=== PATIENT | male | born 1940 | race Caucasian/White ===

== ENCOUNTER 2018-05-31 13:27 | Inpatient (IN) ==
[2018-05-31] MEDS ORDERED: Diphtheria/Tetanus/Pertussis Vaccine Inj 0.5 ML Syringe IM ONE (13:59)
--- NOTE | 2018-05-31 14:26 | XR ---
EXAM DATE: 05/31/2018 2:21 PM EDT AGE/SEX: 77 years / Male INDICATIONS: Fell out of a tree today. CLINICAL DATA: This is the patient's initial encounter. Patient reports that signs and symptoms have been present for 1 day and indicates a pain score of 0/10. MEDICAL/SURGICAL HISTORY: Hypertension. CABG. COMPARISON: No prior exams available for comparison. FINDINGS: A single AP view of the chest demonstrates the lungs to be symmetrically aerated without evidence of mass, infiltrate or effusion. Status post CABG. The cardiomediastinal contours are unremarkable. Oss eous structures are intact. CONCLUSION: Status post CABG. No acute cardiopulmonary disease. Electronically signed by: Joe Howell MD 05/31/2018 2:24 PM EDT
[2018-05-31 14:40] LABS: Baso % (Auto) 0.4 % (0.0-2.0); Eos # (Auto) 0.3 th/mm3 (0.0-0.4); Eos % (Auto) 5.1 % (0.0-4.0); Hematocrit 39.9 % (39.0-51.0); Hemoglobin 13.3 gm/dL (13.0-17.0); Lymph # (Auto) 1.1 th/mm3 (1.0-4.8); Lymph % (Auto) 20.1 % (9.0-44.0); Mean Corpuscular HGB Conc 33.4 % (32.0-36.0); Mean Corpuscular Hemoglobin 29.2 pg (27.0-34.0); Mean Corpuscular Volume 87.4 fL (80.0-100.0); Mean Platelet Volume 8.2 fL (7.0-11.0); Mono # (Auto) 0.4 th/mm3 (0.0-0.9); Mono % (Auto) 7.8 % (0.0-8.0); Neut # (Auto) 3.5 th/mm3 (1.8-7.7); Neut % (Auto) 66.6 % (16.0-70.0); Platelet Count 164 th/mm3 (150-450); Red Blood Count 4.57 mil/mm3 (4.50-5.90); Red Cell Distribution Width 13.7 % (11.6-17.2); White Blood Count 5.3 th/mm3 (4.0-11.0)
[2018-05-31 15:01] LABS: Activated Partial Thrombo Time 29.8 sec (24.3-30.1); INR 1.7 Ratio; Prothrombin Time 17.4 sec (9.8-11.6)
[2018-05-31 15:39] LABS: Anion Gap 9 meq/L (5-15); Blood Urea Nitrogen 20 mg/dL (7-18); Calcium 8.5 mg/dL (8.5-10.1); Carbon Dioxide 24.5 meq/L (21.0-32.0); Chloride 111 meq/L (98-107); Glomerular Filtration Rate 83 mL/min (>89); Glucose,Random 120 mg/dL (74-106); Sodium 144 meq/L (136-145)
[2018-05-31] MEDS ORDERED: Morphine Sulfate Inj 8 MG/ML Vial IV.PUSH ONE (15:50)
[2018-05-31] MEDS ORDERED: Phytonadione Inj 10 MG/ML Vial SQ ONE (16:07)
[2018-05-31] MEDS: niCARdipine Inj 25 MG in Sodium Chlor 0.9% Inj 240 ML IV.CONT PRN (16:10)
--- NOTE | 2018-05-31 16:14 | ED ---
Procedures Laceration Laceration 1: Site: upper extremity Side (If applicable): left Size (cm): 6 Description: linear Depth: simple, single layer Anesthetic used: lidocaine 2% Anesthesia technique:: local infiltration Pre-repair:: wound explored, irrigated extensively and deep structures intact Skin layer closed with: ethilon Size (cm): 4-0 Number of sutures:: 11 Technique:: simple, interrupted
--- NOTE | 2018-05-31 16:25 | ED ---
HPI General Chief complaint: Fall Stated complaint: fall/evac Time Seen by Provider: 05/31/18 13:47 Source: patient and family Mode of arrival: EMS History of Present Illness HPI narrative: Patient is a 77-year-old male on Coumadin presents emergency department after a fall from a tree. Patient does not have any recollection of how he might have fallen. He is fairly certain he lost consciousness. He states he was trimming the trees and he thinks he was about 6 feet up on a ladder and the next thing he knew he was on the ground with EMS standing over called 911 after seeing him on the ground. Ultimately it was passed from me from the patient's that neighbors caught on camera that he was actually hit by a falling branch which forced him off a ladder and onto the ground. Patient does not have any recollection of this. He does have some abrasions on his face as well as a laceration to his left arm and some right wrist pain. Denies any chest pain abdominal pain nausea or vomiting. Denies any headache peer Onset (ago): minute(s) Location: upper extremity Severity: mild Associated symptoms: denies other symptoms Related Data Home Medications Medication Instructions Recorded Confirmed carvedilol [Coreg] 3.125 mg PO BID 05/31/18 05/31/18 gabapentin 300 mg PO DAILY 05/31/18 05/31/18 warfarin [Coumadin] 3 mg PO DAILY 05/31/18 05/31/18 Allergies Allergy/AdvReac Type Severity Reaction Status Date / Time No Known Allergies Allergy Uncoded 01/31/16 13:08 Review of Systems Except as stated in HPI: all other systems reviewed are negative [facility] Medical History Medical History Atrial fibrillation (Acute) CHF (congestive heart failure) (Acute) High triglycerides (Acute) Surgical History Surgical History Hx of CABG (Acute) Hx of cardiac cath (Acute) Hx of cardiac cath (Acute) Social History Social History Substance History: No History of Abuse Second Hand Smoke Exposure: No Smoking Status: Never smoker How Often Do You Have a Drink Containing Alcohol: Monthly or less Recent Travel in [facility] within the Last 8 Weeks: No Recent Out of Country Travel within the Last 8 Weeks: No Immunization History Tetanus Immunization: Unsure Hx Influenza Vaccine This Season: Yes Exam Narrative Exam Narrative: GENERAL: Well-developed well-nourished, no obvious distress peer SKIN: Focused skin assessment warm/dry. There is contusion to the right lip, abrasions to the forehead, also a laceration probably about 6cm in length, there is fatty tissue exposed. There is a contusion to the right forearm, no contusions on chest abdomen or pelvis no contusions posteriorly. HEAD: No carlson signs no raccoons eyes normocephalic. EYES: Pupils equal and round. No scleral icterus. No injection or drainage. ENT: No nasal bleeding or discharge. Mucous membranes pink and moist. NECK: Trachea midline. No JVD. CARDIOVASCULAR: Regular rate and rhythm. No murmur appreciated. RESPIRATORY: No accessory muscle use. Clear to auscultation. Breath sounds equal bilaterally. GASTROINTESTINAL: Abdomen soft, non-tender, nondistended. Hepatic and splenic margins not palpable. MUSCULOSKELETAL: No obvious deformities. No clubbing. No cyanosis. No edema. NEUROLOGICAL: Awake and alert and oriented, GCS 15, appears to have retrograde amnesia to the event as well as some anterograde amnesia. He does not recall when I told him that he has bleeding in the brain. 5 out of 5 strength in all 4 extremities. PSYCHIATRIC: Appropriate mood and affect; insight and judgment normal. Course Hospital Course: Patient was room to the emergency department, hemodynamically stable and neurologically intact he was taken to CAT scan that did show multiple intracranial hemorrhage. This was discussed with Dr. Crews as below. Initial Documented Vital Signs Temperature 98.7 F 05/31/18 13:42 Pulse Rate 67 05/31/18 13:42 Respiratory Rate 18 05/31/18 13:42 Blood Pressure 176/90 H 05/31/18 13:42 Pulse Oximetry 95 05/31/18 13:42 Last Documented Vital Signs Temperature 98.7 F 05/31/18 13:42 Pulse Rate 78 05/31/18 16:44 Respiratory Rate 18 05/31/18 16:44 Blood Pressure 148/71 H 05/31/18 16:44 Pulse Oximetry 95 05/31/18 16:44 Critical Care Time Critical Care Time: Yes Total Critical Care Time: 35 Attestation: Aggregate critical care time was 35 minutes. Time to perform other separately billable procedures was not included in the critical care time. My time did not include minutes spent treating any other patients simultaneously or on activities that did not directly contribute to the patient's treatment. The services I provided to this patient were to treat and/or prevent clinically significant deterioration that could result in: , disability, organ failure I provided critical care services requiring my management, as noted below: Chart data review, documentation time, medication orders and management, vital sign assessments/reviewing monitor data, ordering and reviewing lab tests, ordering and interpreting/reviewing x-rays and diagnostic studies, care of the patient and discussion of the patient with the admitting physicians. Medical Decision Making MDM Narrative Medical decision making narrative: Patient was discussed with Dr. Crews neurosurgery service recommended vitamin K 2 units of FFP admission to the hospital and blood pressure control. I have already ordered a Cardene drip which the patient is responding well to. Doses of morphine and Percocet were given. Patient appears much more comfortable. Laceration was repaired, CT of the neck showed chronic degenerative changes but nothing acute, c-collar was applied and then removed, patient ultimately discussed with Dr. Johnston for admission to the surgical ICU who is agreeable. Differential Diagnosis Differential Diagnosis: Intracranial hemorrhage, fall, concussion, laceration, wrist injury Lab Data Result diagrams: 05/31/18 14:12 05/31/18 14:12 Lab Results 05/31/18 05/31/18 05/31/18 Range/Units 14:12 14:12 14:12 WBC 5.3 (4.0-11.0) th/mm3 RBC 4.57 (4.50-5.90) mil/mm3 Hgb 13.3 (13.0-17.0) gm/dL Hct 39.9 (39.0-51.0) % MCV 87.4 (80.0-100.0) fL MCH 29.2 (27.0-34.0) pg MCHC 33.4 (32.0-36.0) % RDW 13.7 (11.6-17.2) % Plt Count 164 (150-450) th/mm3 MPV 8.2 (7.0-11.0) fL Neut % (Auto) 66.6 (16.0-70.0) % Lymph % (Auto) 20.1 (9.0-44.0) % [place] % (Auto) 7.8 (0.0-8.0) % Eos % (Auto) 5.1 H (0.0-4.0) % Baso % (Auto) 0.4 (0.0-2.0) % Neut # (Auto) 3.5 (1.8-7.7) th/mm3 Lymph # (Auto) 1.1 (1.0-4.8) th/mm3 [place] # (Auto) 0.4 (0.0-0.9) th/mm3 Eos # (Auto) 0.3 (0.0-0.4) th/mm3 Baso # (Auto) 0.0 (0.0-0.2) th/mm3 WBC Differential . Differential Comment Auto diff final PT 17.4 H (9.8-11.6) sec INR 1.7 Ratio APTT 29.8 (24.3-30.1) sec Sodium 144 (136-145) meq/L Potassium 4.0 (3.5-5.1) meq/L Chloride 111 H (98-107) meq/L Carbon Dioxide 24.5 (21.0-32.0) meq/L Anion Gap 9 (5-15) meq/L BUN 20 H (7-18) mg/dL Creatinine 0.89 (0.60-1.30) mg/dL Estimated GFR 83 L (>89) mL/min Random Glucose 120 H (74-106) mg/dL Calcium 8.5 (8.5-10.1) mg/dL Troponin I Less than 0.02 L (0.02-0.05) ng/mL Imaging Data Radiologist's impression: ITS Impressions Cervical Spine CT 05/31/18 13:59 CONCLUSION: 1. No acute bony fracture. 2. Diffuse primary bony degenerative changes, disc degeneration and disc space narrowing throughout the cervical spine. There is diffuse osteopenia of the bony structures. 3. Mild grade 1 anterior spondylolisthesis of C3 over C4. 4. Broad-based bulging at C3-4 and C5-6. Head CT 05/31/18 13:59 CONCLUSION: 1. Small bilateral frontal intraparenchymal hemorrhages. 2. There is subarachnoid hemorrhage in the right sylvian fissure. 3. No midline shift or mass effect. Chest X-Ray 05/31/18 14:01 CONCLUSION: Status post CABG. No acute cardiopulmonary disease. Wrist X-Ray 05/31/18 16:16 CONCLUSION: Hairline nondisplaced fracture of the distal radius. Discharge Plan Discharge Disposition Patient Disposition: 30 Still Patient Discharge Condition Condition: Stable Discharge Details Discharge Problem: Subarachnoid hemorrhage, Subdural hemorrhage, Intraparenchymal hemorrhage of brain, Laceration of arm, Fall, Fracture of radius Physicians Team ED Provider: Gian Mccullough Primary Care Provider: Haroldo Castro Rxs /Orders / Referrals /Forms Prescriptions: No Action carvedilol [Coreg] 3.125 mg Tablet 3.125 mg PO BID RF: 0 warfarin [Coumadin] 3 mg Tablet 3 mg PO DAILY RF: 0 gabapentin 300 mg Capsule 300 mg PO DAILY RF: 0 Discharge Interventions Interventions: Vital Signs Last Done: 05/31/18 16:44 Status ED Status: Admitted Patient
--- NOTE | 2018-05-31 16:32 | XR ---
EXAM DATE: 05/31/2018 4:29 PM EDT AGE/SEX: 77 years / Male INDICATIONS: Right medial wrist pain post fall. CLINICAL DATA: This is the patient's initial encounter. Patient reports that signs and symptoms have been present for 1 day and indicates a pain score of 4/10. MEDICAL/SURGICAL HISTORY: . Hypertension. . CABG. COMPARISON: No prior exams available for comparison. FINDINGS: There is a faint hairline fracture through the distal radius. Otherwise, the bony structures are inta ct. No joint dislocation is seen. There are primary degenerative changes involving the carpal bones. There are calcifications in the soft tissues consistent with vascular calcifications. There is some m ild soft tissue swelling. CONCLUSION: Hairline nondisplaced fracture of the distal radius. Electronically signed by: Roberto Roy MD 05/31/2018 4:31 PM EDT
[2018-05-31] MEDS ORDERED: Sodium Chlor 0.9% Inj 250 ML IV.SIG SCH (17:00)
[2018-05-31] MEDS ORDERED: Bisacodyl 10 MG Supp RECTAL PRN (17:04)
--- NOTE | 2018-05-31 17:27 | P.HPCC ---
History of Present Illness Primary Care Physician: Haroldo Castro DO Chief Complaint: Fall History of Present Illness: Patient is a 75-year-old male with past medical history significant for chronic atrial fibrillation, chronic Coumadin therapy, history of hypertension, history of CABG and carotid endarterectomy who presented to the emergency department after he sustained a fall from a tree. Apparently he was on the tree trimming some branches when he fell down. Patient is on chronic Coumadin for atrial fibrillation. Patient does not have any recollection of how he might have fallen. He did lose consciousness. ER workup showed small bifrontal hemorrhage and a small SAH. Also he sustained hairline fracture of right distal radius. Rest of trauma work up was negative. Neurosurgery Dr. Crews was consulted. Critical care medicine was requested to admit the patient. I evaluated the patient in the ED. He is slightly anxious but nonfocal. He has some retrograde and antegrade amnesia. Blood pressure was poorly controlled systolic blood pressure was in 240s, patient was started on Cardene infusion for this reason. INR is 1.7 and patient will receive 2 units of FFP, vitamin K 5 mg already given by ED - Diagnosis (1) Subarachnoid hemorrhage (2) Intraparenchymal hemorrhage of brain (3) Laceration of arm - Inpatient Certification If this patient has been admitted as an Inpatient: I certify that the inpatient services were ordered in accordance with Medicare regulations governing the order. This includes certification that hospital inpatient services are reasonable and necessary and in the case of services not specified as inpatient-only under 42 CFR 419.22(n), that they are appropriately provided as inpatient services in accordance to with the 2-midnight benchmark under 43 CFR 412.3(e) Estimated Total Length of Stay (Days): 5 Plans for Post Hospital Care: Not yet determined Review of Systems other (Unable to obtain reliably due to amnesia from concussion) PMFSH - History History Provided By: Patient - Medical History Medical History: Medical History (Last Reviewed 05/31/18 @ 17:14 by Ritika Johnston MD) Atrial fibrillation CHF (congestive heart failure) High triglycerides - Surgical History Surgical History: Surgical History (Last Reviewed 05/31/18 @ 17:14 by Ritika Johnston MD) Hx of CABG Hx of cardiac cath Hx of cardiac cath - Tobacco History Second Hand Smoke Exposure: No Smoking Status: Former smoker - Alcohol History How Often Do You Have a Drink Containing Alcohol: Monthly or less - Substance Use History Substance History: No History of Abuse - Travel History Recent Travel in the [place] Within the Last 8 Weeks: No Recent Travel Out of the Country Within the Last 8 Weeks: No - Immunization History Tetanus Immunization: Unsure Hx Influenza Vaccine This Season: Yes Medications and Allergies Active Medications: Active Medications Al Hydroxide/Mg Hydroxide (Milk Of Magnesia Liq) 30 ml PO Q12H PRN PRN Reason: Mild Constipation Bisacodyl (Dulcolax Supp) 10 mg RECTAL DAILY PRN PRN Reason: SEVERE CONSITIPATION Chlorhexidine Gluconate (Chlorhexidine 2% Cloth) 3 pack TOPICAL DAILY@0400 KURT Stop: 06/06/18 03:59 Chlorhexidine Gluconate (Chlorhexidine 2% Cloth) 3 pack TOPICAL DAILY@0400 PRN PRN Reason: Extra cloth needed Stop: 06/06/18 03:59 Famotidine (Pepcid) 20 mg PO BID KURT Famotidine (Pepcid Pf Inj) 20 mg IV.PUSH Q12HR [facility] Nicardipine HCl 25 mg/ Sodium (Chloride) 250 mls @ 50 mls/hr IV.CONT TITRATE PRN; Protocol PRN Reason: Per Protocol Last Admin: 05/31/18 16:10 Dose: 5 mg/hr, 50 mls/hr Sodium Chloride (Ns Inj) 250 mls @ 15 mls/hr IV.SIG ONCE KURT Stop: 06/01/18 09:39 Lactulose (Lactulose Liq) 30 ml PO DAILY PRN PRN Reason: SEVERE CONSITIPATION Senna/Docusate Sodium (Radhika-Colace) 1 tab PO BID [facility] Sennosides (Senokot) 17.2 mg PO Q12H PRN PRN Reason: Moderate Constipation Sodium Chloride (Ns Flush) 2 ml IV.FLUSH BID [facility] Sodium Chloride (Ns Flush) 2 ml IV.FLUSH PRN PRN PRN Reason: FLUSH AFTER USING IV ACCESS Allergies Allergy/AdvReac Type Severity Reaction Status Date / Time No Known Allergies Allergy Uncoded 01/31/16 13:08 Home Medications Medication Instructions Recorded Confirmed Type carvedilol [Coreg] 3.125 mg PO BID 05/31/18 05/31/18 History gabapentin 300 mg PO DAILY 05/31/18 05/31/18 History warfarin [Coumadin] 3 mg PO DAILY 05/31/18 05/31/18 History Results - Labs CBC & Chem 7: 05/31/18 14:12 05/31/18 14:12 Labs: Short CBC 05/31/18 Range/Units 14:12 WBC 5.3 (4.0-11.0) th/mm3 Hgb 13.3 (13.0-17.0) gm/dL Hct 39.9 (39.0-51.0) % Plt Count 164 (150-450) th/mm3 BMP 05/31/18 14:12 Sodium 144 Potassium 4.0 Chloride 111 H Carbon Dioxide 24.5 BUN 20 H Creatinine 0.89 Calcium 8.5 Cardiac Enzymes 05/31/18 Range/Units 14:12 Troponin I Less than 0.02 L (0.02-0.05) ng/mL - Imaging Impressions Cervical Spine CT 05/31/18 13:59 CONCLUSION: 1. No acute bony fracture. 2. Diffuse primary bony degenerative changes, disc degeneration and disc space narrowing throughout the cervical spine. There is diffuse osteopenia of the bony structures. 3. Mild grade 1 anterior spondylolisthesis of C3 over C4. 4. Broad-based bulging at C3-4 and C5-6. Head CT 05/31/18 13:59 CONCLUSION: 1. Small bilateral frontal intraparenchymal hemorrhages. 2. There is subarachnoid hemorrhage in the right sylvian fissure. 3. No midline shift or mass effect. Chest X-Ray 05/31/18 14:01 CONCLUSION: Status post CABG. No acute cardiopulmonary disease. Wrist X-Ray 05/31/18 16:16 CONCLUSION: Hairline nondisplaced fracture of the distal radius. Exam Vital signs: Vital Signs 05/31/18 13:42 05/31/18 14:41 05/31/18 15:38 Temperature 98.7 F Pulse Rate 67 68 73 Respiratory Rate 18 18 Blood Pressure 176/90 H 228/102 H Pulse Oximetry 95 97 98 05/31/18 16:33 05/31/18 16:44 Temperature Pulse Rate 78 78 Respiratory Rate 18 18 Blood Pressure 161/85 H 148/71 H Pulse Oximetry 96 95 Intake & Output 05/30/18 05/31/18 05/31/18 18:59 06:59 18:59 Weight 68.039 kg Narrative: GENERAL: Well-developed well-nourished, mildly anxious SKIN: Warm/dry. Multiple small abrasions and lacerations to the right side of the face predominantly HEAD: No carlson signs, normocephalic. EYES: Pupils equal and round. No scleral icterus. No injection or drainage. ENT: No nasal bleeding or discharge. NECK: Trachea midline. No JVD. Well-healed left carotid endarterectomy scar CARDIOVASCULAR: Regular rate and rhythm. No murmur appreciated. Well-healed CABG scar RESPIRATORY: No accessory muscle use. Clear to auscultation. Breath sounds equal bilaterally. GASTROINTESTINAL: Abdomen soft, non-tender, nondistended. Hepatic and splenic margins not palpable. MUSCULOSKELETAL: No obvious deformities. Band-Aids applied to the left forearm NEUROLOGICAL: Awake and alert and oriented, GCS 15, did not recall any events and immediate post fall. 5 out of 5 strength in all 4 extremities. Septic Shock Reassessment Septic shock perfusion: reassessment completed Caprini VTE Risk Assessment Caprini VTE Risk Assessment: No/Low Risk (score <= 1) VTE Pharmacological Exception Reason: Hemorrhage Caprini Risk Assessment Model: Point Value = 1 Point Value = 2 Point Value = 3 Point Value = 5 Age 41-60 Minor surgery BMI > 25 kg/m2 Swollen legs Varicose veins or History of unexplained or recurrent spontaneous Oral contraceptives or hormone replacement Sepsis (< 1 month) Serious lung disease, including pneumonia (< 1 month) Abnormal pulmonary function Acute myocardial infarction Congestive heart failure (< 1 month) History of inflammatory bowel disease Medical patient at bed rest Age 61-74 Arthroscopic surgery Major open surgery (> 45 min) Laparoscopic surgery (> 45 min) Malignancy Confined to bed (> 72 hours) Immobilizing plaster cast Central venous access Age >= 75 History of VTE Family history of VTE Factor V Leiden Prothrombin [id number] Lupus anticoagulant Anticardiolipin antibodies Elevated serum homocysteine Heparin-induced thrombocytopenia Other congenital or acquired thrombophilia Stroke (< 1 month) Elective arthroplasty Hip, pelvis, or leg fracture Acute spinal cord injury (< 1 month) Prophylaxis Regimen: Total Risk Factor Score Risk Level Prophylaxis Regimen 0-1 Low Early ambulation 2 Moderate Order ONE of the following: *Sequential Compression Device (SCD) *Heparin 5000 units SQ BID 3-4 Higher Order ONE of the following medications: *Heparin 5000 units SQ TID *Enoxaparin/Lovenox 40 mg SQ daily (WT < 150 kg, CrCl > 30 mL/min) *Enoxaparin/Lovenox 30 mg SQ daily (WT < 150 kg, CrCl > 10-29 mL/min) *Enoxaparin/Lovenox 30 mg SQ BID (WT < 150 kg, CrCl > 30 mL/min) AND/OR *Sequential Compression Device (SCD) 5 or more Highest Order ONE of the following medications: *Heparin 5000 units SQ TID (Preferred with Epidurals) *Enoxaparin/Lovenox 40 mg SQ daily (WT < 150 kg, CrCl > 30 mL/min) *Enoxaparin/Lovenox 30 mg SQ daily (WT < 150 kg, CrCl > 10-29 mL/min) *Enoxaparin/Lovenox 30 mg SQ BID (WT < 150 kg, CrCl > 30 mL/min) AND *Sequential Compression Device (SCD) Assessment and Plan - Problem List (1) Subarachnoid hemorrhage Code(s): I60.9 - Nontraumatic subarachnoid hemorrhage, unspecified Status: Acute (2) Intraparenchymal hemorrhage of brain Code(s): I61.9 - Nontraumatic intracerebral hemorrhage, unspecified Status: Acute (3) Laceration of arm Code(s): S41.119A - Laceration without foreign body of unspecified upper arm, initial encounter Status: Acute - Assessment and Plan Plan: NEURO: Status post fall Small bilateral frontal intraparenchymal hemorrhages Subarachnoid hemorrhage in the right sylvian fissure -Neurosurgery consult with Dr. Crews -Follow-up CT scan in a.m., no indication for seizure prophylaxis at this time -Avoid hypoxia, hyponatremia, hypercarbia -Normal saline infusion RESP: -Nasal cannula oxygen -DuoNeb every 6 hours as needed CV: Hypertensive emergency Atrial fibrillation by history Coronary artery disease status post CABG Status post left carotid endarterectomy -Normal saline IV fluids at 75 ml per hour to maintain sodium> 145 -Cardene infusion to keep SBP less than 150 -Continue carvedilol GI: -Heart healthy diet -Famotidine, bowel regimen : -Monitor renal function closely. No indication for Suarez catheter. ID: -Monitor for infection HEME: Coagulopathy from chronic Coumadin use -Give 2 units of FFP -Monitor CBC, CMP, INR -Vit K 5 mg sq given in ED ENDO: -Electrolyte replacement per ICU protocol MSK Hairline nondisplaced fracture of the distal radius. -Ortho consult, Splint PROPH: -Bilateral lower extremity SCDs. Chemical DVT prophylaxis contraindicated due to intracranial hemorrhage, IV famotidine for GI prophylaxis LINES: -Utilize peripheral IVs, central line if needed CC time 35 min Code Status: Full Discussed Condition With: Dr. Mccullough, patient and his
--- NOTE | 2018-05-31 18:08 | P.CON ---
History of Present Illness Service: Neurosurgery Consult date: 05/31/18 Requesting Physician: Ritika Johnston Reason for Consult: Traumatic brain injury Primary Care Provider: Haroldo Castro DO Family Provider: Haroldo Castro DO Chief Complaint: Fall History of Present Illness: 77-year-old gentleman who was brought to [facility] emergency room after a fall from a tree. Apparently he was up on a tree on a ladder cutting a tree branch which fell on his head and he lost consciousness and fell from the ladder onto the ground. He is amnestic of the event. His main complaint is right forearm wrist pain. He also relates that the tree branch hit him yesterday on the face and he had some abrasions but did not lose consciousness. He is hypertensive in the emergency room and placed on Cardene drip. He is also on chronic Coumadin therapy for his atrial fibrillation with an elevated INR. CT scan of the head obtained reveals some small contusions and traumatic subarachnoid hemorrhage with no mass-effect or midline shift noted. CT of cervical spine reveals chronic degenerative changes. He relates chronic neck pain which she has had since he was 17-18 years old and is not new. He denies any headaches, nausea vomiting, double vision or blurred vision , or any numbness in the upper lower extremities. Review of Systems All other systems reviewed negative except as stated in HPI Constitutional: Reports body ache(s) Ears, Nose, Mouth, and Throat: Reports lip swelling, Reports mouth pain, Reports neck pain, Reports tongue swelling Musculoskeletal: Reports joint pain, Reports muscle cramps, Reports neck pain, Reports stiffness Skin/Breast: Reports bleeding lesions, Reports rash, Reports wounds Hematologic/Lymphatic: Reports easy bleeding, Reports easy bruising PMFSH - History History Provided By: Patient, Medical Record - Medical History Medical History: Medical History (Last Reviewed 05/31/18 @ 17:14 by Ritika Johnston MD) Atrial fibrillation CHF (congestive heart failure) High triglycerides - Surgical History Surgical History: Surgical History (Last Reviewed 05/31/18 @ 17:14 by Ritika Johnston MD) Hx of CABG Hx of cardiac cath Hx of cardiac cath - Tobacco History Second Hand Smoke Exposure: No Smoking Status: Former smoker - Alcohol History How Often Do You Have a Drink Containing Alcohol: Monthly or less - Substance Use History Substance History: No History of Abuse - Travel History Recent Travel in the [place] Within the Last 8 Weeks: No Recent Travel Out of the Country Within the Last 8 Weeks: No - Immunization History Tetanus Immunization: Unsure Hx Influenza Vaccine This Season: Yes Medications and Allergies Active Medications: Active Medications Al Hydroxide/Mg Hydroxide (Milk Of Magnesia Liq) 30 ml PO Q12H PRN PRN Reason: Mild Constipation Albuterol (Duoneb Neb (Prn)) 1 ampul NEB Q2HR NEB PRN PRN Reason: SHORTNESS OF BREATH Bisacodyl (Dulcolax Supp) 10 mg RECTAL DAILY PRN PRN Reason: SEVERE CONSITIPATION Carvedilol (Coreg) 3.125 mg PO BID [facility] Chlorhexidine Gluconate (Chlorhexidine 2% Cloth) 3 pack TOPICAL DAILY@0400 KURT Stop: 06/06/18 03:59 Chlorhexidine Gluconate (Chlorhexidine 2% Cloth) 3 pack TOPICAL DAILY@0400 PRN PRN Reason: Extra cloth needed Stop: 06/06/18 03:59 Famotidine (Pepcid) 20 mg PO BID [facility] Gabapentin (Neurontin) 300 mg PO DAILY [facility] Nicardipine HCl 25 mg/ Sodium (Chloride) 250 mls @ 50 mls/hr IV.CONT TITRATE PRN; Protocol PRN Reason: Per Protocol Last Admin: 05/31/18 16:10 Dose: 5 mg/hr, 50 mls/hr Sodium Chloride (Ns Inj) 250 mls @ 15 mls/hr IV.SIG ONCE KURT Stop: 06/01/18 09:39 Lactulose (Lactulose Liq) 30 ml PO DAILY PRN PRN Reason: SEVERE CONSITIPATION Senna/Docusate Sodium (Radhika-Colace) 1 tab PO BID [facility] Sennosides (Senokot) 17.2 mg PO Q12H PRN PRN Reason: Moderate Constipation Sodium Chloride (Ns Flush) 2 ml IV.FLUSH BID [facility] Sodium Chloride (Ns Flush) 2 ml IV.FLUSH PRN PRN PRN Reason: FLUSH AFTER USING IV ACCESS Allergies Allergy/AdvReac Type Severity Reaction Status Date / Time No Known Allergies Allergy Uncoded 01/31/16 13:08 Home Medications Medication Instructions Recorded Confirmed Type carvedilol [Coreg] 3.125 mg PO BID 05/31/18 05/31/18 History gabapentin 300 mg PO DAILY 05/31/18 05/31/18 History warfarin [Coumadin] 3 mg PO DAILY 05/31/18 05/31/18 History Physical Exam Vital signs: Vital Signs 05/31/18 13:42 05/31/18 14:41 05/31/18 15:38 Temperature 98.7 F Pulse Rate 67 68 73 Respiratory Rate 18 18 Blood Pressure 176/90 H 228/102 H Pulse Oximetry 95 97 98 05/31/18 16:33 05/31/18 16:44 05/31/18 17:12 Temperature Pulse Rate 78 78 79 Respiratory Rate 18 18 18 Blood Pressure 161/85 H 148/71 H 153/77 H Pulse Oximetry 96 95 95 Intake & Output 05/30/18 05/31/18 05/31/18 18:59 06:59 18:59 Weight 68.039 kg - Constitutional no acute distress, cooperative - Routine HEENT Exam Head: Present: abrasion, hematoma, facial swelling Eye: Present: EOMI, PERRL ENT: Present: mucous membranes moist, oropharynx clear, nares patent, external ear normal - Routine Neck Exam Present: supple, full ROM, trachea midline - Routine Respiratory Exam Present: CTA bilaterally - Routine Cardiovascular Exam Present: irregularly irregular Comments: Well-healed midline sternotomy scar - Routine Abdominal Exam Present: soft, normoactive bowel sounds - Routine Extremities Exam Present: edema, tenderness, joint swelling - Routine Skin Exam Present: wounds, rash - Routine Neurological Exam Present: alert, oriented X3, CN II-XII intact, moving all extremities, facial asymmetry, normal speech Slight facial asymmetry from swelling in the right side of the face and lip with ecchymosis - Detailed Neurological Exam: Coma Scale Eye Opening: Spontaneous Verbal Response: Oriented Motor Response: Obey commands [place] Coma Scale Total: 15 - Routine Psychiatric Exam Present: normal affect, normal thought process, cooperative Assessment and Plan - Assessment (1) Traumatic brain injury with brief (less than 1 hour) loss of consciousness Code(s): S06.9X9A - Unspecified intracranial injury with loss of consciousness of unspecified duration, initial encounter Status: Acute (2) Brain contusion with less than 1 hour loss of consciousness Code(s): S06.2X9A - Diffuse traumatic brain injury with loss of consciousness of unspecified duration, initial encounter Status: Acute (3) Traumatic subarachnoid hematoma with loss of consciousness Code(s): S06.6X9A - Traumatic subarachnoid hemorrhage with loss of consciousness of unspecified duration, initial encounter Status: Acute (4) Hypertension Code(s): I10 - Essential (primary) hypertension Status: Acute (5) Warfarin-induced coagulopathy Code(s): D68.32 - Hemorrhagic disorder due to extrinsic circulating anticoagulants; T45.515A - Adverse effect of anticoagulants, initial encounter Status: Acute (6) Radius fracture Code(s): S52.90XA - Unspecified fracture of unspecified forearm, initial encounter for closed fracture Status: Acute - Plan 77-year-old gentleman with a traumatic brain injury with a small cerebral contusions and traumatic subarachnoid hemorrhage. He is also hypertensive and currently on Cardene drip for regulation. He has coagulopathy with elevated INR from chronic Coumadin therapy for his atrial fibrillation with INR being corrected with the vitamin K and FFP transfusion. He will be admitted to the intensive care unit for close neurologic observation along with hypertension regulation. Follow up CT scan of the head tomorrow morning to rule out any progression of the small areas of hemorrhage. Mechanical DVT prophylaxis and orthopedic surgery evaluation for the right radius fracture. Radiology Note Impressions Cervical Spine CT 05/31/18 13:59 CONCLUSION: 1. No acute bony fracture. 2. Diffuse primary bony degenerative changes, disc degeneration and disc space narrowing throughout the cervical spine. There is diffuse osteopenia of the bony structures. 3. Mild grade 1 anterior spondylolisthesis of C3 over C4. 4. Broad-based bulging at C3-4 and C5-6. Head CT 05/31/18 13:59 CONCLUSION: 1. Small bilateral frontal intraparenchymal hemorrhages. 2. There is subarachnoid hemorrhage in the right sylvian fissure. 3. No midline shift or mass effect. Chest X-Ray 05/31/18 14:01 CONCLUSION: Status post CABG. No acute cardiopulmonary disease. Wrist X-Ray 05/31/18 16:16 CONCLUSION: Hairline nondisplaced fracture of the distal radius. (6) Radius fracture Qualifiers: Laterality: right
[2018-05-31] MEDS ORDERED: Famotidine PF Inj 20 MG/2 ML Vial IV.PUSH SCH (21:00)
[2018-05-31] MEDS: Famotidine 20 MG Tablet PO SCH (21:44)
[2018-05-31] MEDS: Senna/Docusate Sodium 8.6/50 MG Tablet PO SCH (21:45)
[2018-06-01] MEDS ORDERED: Chlorhexidine Gluconate 2% 1 Pack (2 Cloths) TOPICAL PRN (04:00)
[2018-06-01] MEDS: Chlorhexidine Gluconate 2% 1 Pack (2 Cloths) TOPICAL SCH (04:37)
[2018-06-01 06:08] LABS: Hematocrit 35.5 % (39.0-51.0); Hemoglobin 12.1 gm/dL (13.0-17.0); Mean Corpuscular HGB Conc 34.1 % (32.0-36.0); Mean Corpuscular Hemoglobin 29.9 pg (27.0-34.0); Mean Corpuscular Volume 87.4 fL (80.0-100.0); Mean Platelet Volume 8.5 fL (7.0-11.0); Platelet Count 150 th/mm3 (150-450); Red Blood Count 4.06 mil/mm3 (4.50-5.90); Red Cell Distribution Width 13.7 % (11.6-17.2); White Blood Count 7.1 th/mm3 (4.0-11.0)
[2018-06-01 06:11] LABS: INR 1.4 Ratio; Prothrombin Time 14.3 sec (9.8-11.6)
[2018-06-01 06:32] LABS: Albumin 3.6 g/dL (3.4-5.0); Anion Gap 11 meq/L (5-15); Aspartate Aminotransferase 16 U/L (15-37); Blood Urea Nitrogen 20 mg/dL (7-18); Calcium 8.9 mg/dL (8.5-10.1); Carbon Dioxide 23.3 meq/L (21.0-32.0); Chloride 107 meq/L (98-107); Glomerular Filtration Rate Greater Than 89 mL/min (>89); Glucose,Random 124 mg/dL (74-106); Potassium 3.7 meq/L (3.5-5.1); Sodium 141 meq/L (136-145)
[2018-06-01 06:34] LABS: Alanine Aminotransferase 23 U/L (12-78)
[2018-06-01 06:36] LABS: Alkaline Phosphatase 61 U/L (45-117); Total Protein 6.9 g/dL (6.4-8.2)
[2018-06-01] MEDS ORDERED: Gabapentin 300 MG Capsule PO SCH (09:00)
[2018-06-01] MEDS: Famotidine 20 MG Tablet PO SCH (09:56)
[2018-06-01] MEDS: Senna/Docusate Sodium 8.6/50 MG Tablet PO SCH (09:57)
[2018-06-01] MEDS: niCARdipine Inj 25 MG in Sodium Chlor 0.9% Inj 240 ML IV.CONT PRN (10:21)
--- NOTE | 2018-06-01 10:25 | P.PNCC ---
Subjective Subjective Remarks/Hospital Course: Patient is a 75-year-old male with past medical history significant for chronic atrial fibrillation, chronic Coumadin therapy, history of hypertension, history of CABG and carotid endarterectomy who presented to the emergency department after he sustained a fall from a tree. Apparently he was on the tree trimming some branches when he fell down. Patient is on chronic Coumadin for atrial fibrillation. Patient does not have any recollection of how he might have fallen. He did lose consciousness. ER workup showed small bifrontal hemorrhage and a small SAH. Also he sustained hairline fracture of right distal radius. Rest of trauma work up was negative. Neurosurgery Dr. Crews was consulted. Critical care medicine was requested to admit the patient. I evaluated the patient in the ED. He is slightly anxious but nonfocal. He has some retrograde and antegrade amnesia. Blood pressure was poorly controlled systolic blood pressure was in 240s, patient was started on Cardene infusion for this reason. INR is 1.7 and patient will receive 2 units of FFP, vitamin K 5 mg already given by ED. Subjective: 06/01 INR 1.4. Having urinary retention with [address] brain ordered for this morning is not done yet. He denies headache/nausea/vomiting. On cardene 2.5 mg/hr. Nurse states he was coughing when she administered meds and suggests speech therapy evaluation. Objective Vital Signs / I&O: Vital Signs 05/31/18 13:42 05/31/18 14:41 05/31/18 15:38 Temperature 98.7 F Pulse Rate 67 68 73 Respiratory Rate 18 18 Blood Pressure 176/90 H 228/102 H Pulse Oximetry 95 97 98 05/31/18 16:33 05/31/18 16:44 05/31/18 17:12 Temperature Pulse Rate 78 78 79 Respiratory Rate 18 18 18 Blood Pressure 161/85 H 148/71 H 153/77 H Pulse Oximetry 96 95 95 05/31/18 18:28 05/31/18 20:01 05/31/18 21:51 Temperature 98.0 F Pulse Rate 84 87 87 Respiratory Rate 18 16 16 Blood Pressure 151/78 H 148/75 H 141/69 H Pulse Oximetry 95 94 L 98 05/31/18 22:19 05/31/18 23:10 05/31/18 23:27 Temperature 97.7 F 97.7 F Pulse Rate 87 85 85 Respiratory Rate 18 16 16 Blood Pressure 144/87 H 134/73 132/71 Pulse Oximetry 96 06/01/18 01:00 06/01/18 01:02 06/01/18 04:00 Temperature 97.9 F 97.5 F L 98.2 F Pulse Rate 86 89 72 Respiratory Rate 18 14 20 Blood Pressure 149/70 H 157/74 H Pulse Oximetry 95 96 06/01/18 07:00 06/01/18 08:00 06/01/18 09:00 Temperature 98 F Pulse Rate 72 72 72 Respiratory Rate 18 16 18 Blood Pressure 140/66 147/76 H Pulse Oximetry 96 Intake & Output 05/31/18 06/01/18 06/01/18 18:59 06:59 18:59 Intake Total 250 / 250 Balance 250 / 250 Weight 68.039 kg Intake: IV 250 / 250 Cardene Inj 25 MG In NS Inj 240 250 / 250 ML @ 5 MG/HR 50 mls/hr IV.CONT TITRATE PRN Rx#:[id number] Intake (Blood Product) Amt 0 / 0 Plasma Thawed 5 Day Cp2d Unit 0 / 0 [id number] Plasma Thawed 5 Day Cp2d Unit 0 / 0 [id number] Other: # Voids 1 Weight On Admission 74.6 kg Result Diagrams: 06/05/18 21:58 06/05/18 21:58 Objective Remarks: GENERAL: Well-developed well-nourished, sitting up in bed, alert. SKIN: Warm/dry. Multiple small abrasions and to the right side of the face. Ecchymosis above right upper lip. HEAD: No carlson signs, normocephalic. EYES: Pupils equal and round. No scleral icterus. No injection or drainage. ENT: No nasal bleeding or discharge. NECK: Trachea midline. No JVD. Well-healed left carotid endarterectomy scar CARDIOVASCULAR: Regular rate and rhythm. No murmur appreciated. Well-healed CABG scar RESPIRATORY: No accessory muscle use. Clear to auscultation. Breath sounds equal bilaterally. GASTROINTESTINAL: Abdomen soft, non-tender, nondistended. Hepatic and splenic margins not palpable. MUSCULOSKELETAL: No obvious deformities. Splint R forearm. NEUROLOGICAL: Awake and alert and oriented, GCS 15, did not recall any events and immediate post fall. 5 out of 5 strength in all 4 extremities. Assessment and Plan - Problem List (1) Subdural hemorrhage Code(s): I62.00 - Nontraumatic subdural hemorrhage, unspecified Status: Acute (2) Traumatic brain injury with brief (less than 1 hour) loss of consciousness Code(s): S06.9X9A - Unspecified intracranial injury with loss of consciousness of unspecified duration, initial encounter Status: Acute (3) Intraparenchymal hemorrhage of brain Code(s): I61.9 - Nontraumatic intracerebral hemorrhage, unspecified Status: Acute (4) Subarachnoid hemorrhage Code(s): I60.9 - Nontraumatic subarachnoid hemorrhage, unspecified Status: Acute (5) Laceration of arm Code(s): S41.119A - Laceration without foreign body of unspecified upper arm, initial encounter Status: Acute (6) CAD (coronary artery disease) Code(s): I25.10 - Atherosclerotic heart disease of [place] coronary artery without angina pectoris Status: Acute (7) Urinary retention Code(s): R33.9 - Retention of urine, unspecified Status: Acute (8) Paroxysmal atrial fibrillation Code(s): I48.0 - Paroxysmal atrial fibrillation Status: Acute (9) Brain contusion with less than 1 hour loss of consciousness Code(s): S06.2X9A - Diffuse traumatic brain injury with loss of consciousness of unspecified duration, initial encounter Status: Acute (10) Fall Code(s): W19.XXXA - Unspecified fall, initial encounter Status: Acute (11) Hypertension Code(s): I10 - Essential (primary) hypertension Status: Acute (12) Radius fracture Code(s): S52.90XA - Unspecified fracture of unspecified forearm, initial encounter for closed fracture Status: Acute (13) Hx of CABG Code(s): Z95.1 - Presence of aortocoronary bypass graft Status: Acute - Assessment and Plan Plan: NEURO: Status post fall Small bilateral frontal intraparenchymal hemorrhages Subarachnoid hemorrhage in the right sylvian fissure -Neurosurgery consult with Dr. Crews -Follow-up CT scan today with increased size of hemorrhage but no mass effect - no indication for seizure prophylaxis at this time -Avoid hypoxia, hyponatremia, hypercarbia RESP: -Nasal cannula oxygen -DuoNeb every 6 hours as needed CV: Hypertensive emergency Atrial fibrillation by history Coronary artery disease status post CABG Status post left carotid endarterectomy -Cardene infusion to keep SBP less than 160 -Labetalol prn to facilitate cardene weaning. -increase carvedilol 6.25 mill grams p.o. twice daily GI: -Speech therapy consult to evaluate swallow. -Famotidine, bowel regimen : s/p TURP Urinary retention Bladder scan every 6 hours and any night As needed for retention greater than 300 Flomax 0.4 mg po daily. Outpatient urologist is Dr. Teixeira ID: -Monitor for infection HEME: Coagulopathy from chronic Coumadin use , resolved. -Received 2 units of FFP , Vit K 5 mg - Repeat INR 1.4 ENDO: -Electrolyte replacement per ICU protocol MSK Hairline nondisplaced fracture of the distal radius. -Ortho consult, Splint PROPH: -Bilateral lower extremity SCDs. Chemical DVT prophylaxis contraindicated due to intracranial hemorrhage, IV famotidine for GI prophylaxis LINES: -Utilize peripheral IVs Patient and his updated at bedside. Level 3 Followup (12) Radius fracture Qualifiers: Laterality: right
[2018-06-01] MEDS ORDERED: *Labetalol HCl Inj 100 MG/20 ML Vial PERIprocedural Use ONLY IV.PUSH PRN (10:55)
--- NOTE | 2018-06-01 11:40 | ECG ---
Date Performed: 05/31/2018 Time Performed: 14:09:43 PTAGE: 77 years EKG: Sinus rhythm NORMAL ECG Since the PREVIOUS TRACING , no significant change noted PREVIOUS TRACIN08/26/2007 14.48 DOCTOR: Vern Lacey Interpretating Date/Time 06/01/2018 11:40:15
[2018-06-01] MEDS ORDERED: Famotidine Premix Inj 20 MG/50 ML PIGGYBACK IV.SIG SCH (17:00)
--- NOTE | 2018-06-01 17:08 | P.PNNS ---
Subjective Interval history: Pt denies headache, nausea, vomiting. He complains of bilateral wrist pain. <Joe Reyes - Last Filed: 06/01/18 17:02> Physical Exam Vital signs: Vital Signs 05/31/18 17:12 05/31/18 18:28 05/31/18 20:01 Temperature Pulse Rate 79 84 87 Respiratory Rate 18 18 16 Blood Pressure 153/77 H 151/78 H 148/75 H Pulse Oximetry 95 95 94 L 05/31/18 21:51 05/31/18 22:19 05/31/18 23:10 Temperature 98.0 F 97.7 F Pulse Rate 87 87 85 Respiratory Rate 16 18 16 Blood Pressure 141/69 H 144/87 H 134/73 Pulse Oximetry 98 96 05/31/18 23:27 06/01/18 01:00 06/01/18 01:02 Temperature 97.7 F 97.9 F 97.5 F L Pulse Rate 85 86 89 Respiratory Rate 16 18 14 Blood Pressure 132/71 149/70 H Pulse Oximetry 95 06/01/18 04:00 06/01/18 07:00 06/01/18 08:00 Temperature 98.2 F 98 F Pulse Rate 72 72 72 Respiratory Rate 20 18 16 Blood Pressure 157/74 H 140/66 Pulse Oximetry 96 96 06/01/18 09:00 Temperature Pulse Rate 72 Respiratory Rate 18 Blood Pressure 147/76 H Pulse Oximetry Intake & Output 05/31/18 06/01/18 06/01/18 18:59 06:59 18:59 Intake Total 250 / 250 Balance 250 / 250 Weight 68.039 kg Intake: IV 250 / 250 Cardene Inj 25 MG In NS Inj 240 250 / 250 ML @ 5 MG/HR 50 mls/hr IV.CONT TITRATE PRN Rx#:[id number] Intake (Blood Product) Amt 0 / 0 Plasma Thawed 5 Day Cp2d Unit 0 / 0 [id number] Plasma Thawed 5 Day Cp2d Unit 0 / 0 [id number] Other: # Voids 1 Weight On Admission 74.6 kg - Constitutional no acute distress, thin, cooperative - Routine HEENT Exam Head: Present: abrasion (Pt with facial ecchymosis and abrasions.) Eye: Present: PERRL. Absent: conjunctival icterus - Routine Neck Exam Present: trachea midline - Routine Respiratory Exam Present: CTA bilaterally. Absent: respiratory distress, rhonchi, wheezes - Routine Cardiovascular Exam Present: RRR, S1, S2. Absent: murmur - Routine Abdominal Exam Present: soft. Absent: tenderness, distended - Routine Skin Exam Present: ecchymosis (face right lip). Absent: cyanosis, erythema - Routine Neurological Exam Present: alert, oriented X3, normal speech. Absent: sensory deficit, facial asymmetry - Detailed Neurological Exam: Coma Scale Eye Opening: Spontaneous Verbal Response: Oriented Motor Response: Obey commands [place] Coma Scale Total: 15 - Routine Psychiatric Exam Present: normal affect, normal thought process <Joe Reyes - Last Filed: 06/01/18 17:02> Vital signs: Vital Signs 05/31/18 18:28 05/31/18 20:01 05/31/18 21:51 Temperature 98.0 F Pulse Rate 84 87 87 Respiratory Rate 18 16 16 Blood Pressure 151/78 H 148/75 H 141/69 H Pulse Oximetry 95 94 L 98 05/31/18 22:19 05/31/18 23:10 05/31/18 23:27 Temperature 97.7 F 97.7 F Pulse Rate 87 85 85 Respiratory Rate 18 16 16 Blood Pressure 144/87 H 134/73 132/71 Pulse Oximetry 96 06/01/18 01:00 06/01/18 01:02 06/01/18 04:00 Temperature 97.9 F 97.5 F L 98.2 F Pulse Rate 86 89 72 Respiratory Rate 18 14 20 Blood Pressure 149/70 H 157/74 H Pulse Oximetry 95 96 06/01/18 07:00 06/01/18 08:00 06/01/18 09:00 Temperature 98 F Pulse Rate 72 72 72 Respiratory Rate 18 16 18 Blood Pressure 140/66 147/76 H Pulse Oximetry 96 Intake & Output 05/31/18 06/01/18 06/01/18 18:59 06:59 18:59 Intake Total 250 / 250 Balance 250 / 250 Weight 68.039 kg Intake: IV 250 / 250 Cardene Inj 25 MG In NS Inj 240 250 / 250 ML @ 5 MG/HR 50 mls/hr IV.CONT TITRATE PRN Rx#:[id number] Intake (Blood Product) Amt 0 / 0 Plasma Thawed 5 Day Cp2d Unit 0 / 0 [id number] Plasma Thawed 5 Day Cp2d Unit 0 / 0 [id number] Other: # Voids 1 Weight On Admission 74.6 kg <EleonoraCurt - Last Filed: 06/01/18 18:13> Assessment and Plan - Assessment (1) Subarachnoid hemorrhage Code(s): I60.9 - Nontraumatic subarachnoid hemorrhage, unspecified Status: Acute (2) Intraparenchymal hemorrhage of brain Code(s): I61.9 - Nontraumatic intracerebral hemorrhage, unspecified Status: Acute (3) Fall Code(s): W19.XXXA - Unspecified fall, initial encounter Status: Acute (4) Traumatic brain injury with brief (less than 1 hour) loss of consciousness Code(s): S06.9X9A - Unspecified intracranial injury with loss of consciousness of unspecified duration, initial encounter Status: Acute (5) Brain contusion with less than 1 hour loss of consciousness Code(s): S06.2X9A - Diffuse traumatic brain injury with loss of consciousness of unspecified duration, initial encounter Status: Acute (6) Traumatic subarachnoid hematoma with loss of consciousness Code(s): S06.6X9A - Traumatic subarachnoid hemorrhage with loss of consciousness of unspecified duration, initial encounter Status: Acute - Plan Patient had some blossoming now hemorrhagic contusion. He is neurologically intact. We will continue with close neurological checks. Continue with current care. Increase activity. Continue with SCD. Continue with GI prophylaxis. <Joe Reyes - Last Filed: 06/01/18 17:02> - Assessment (1) Traumatic brain injury with brief (less than 1 hour) loss of consciousness Code(s): S06.9X9A - Unspecified intracranial injury with loss of consciousness of unspecified duration, initial encounter Status: Acute (2) Brain contusion with less than 1 hour loss of consciousness Code(s): S06.2X9A - Diffuse traumatic brain injury with loss of consciousness of unspecified duration, initial encounter Status: Acute (3) Traumatic subarachnoid hematoma with loss of consciousness Code(s): S06.6X9A - Traumatic subarachnoid hemorrhage with loss of consciousness of unspecified duration, initial encounter Status: Acute (4) Hypertension Code(s): I10 - Essential (primary) hypertension Status: Acute (5) Warfarin-induced coagulopathy Code(s): D68.32 - Hemorrhagic disorder due to extrinsic circulating anticoagulants; T45.515A - Adverse effect of anticoagulants, initial encounter Status: Acute (6) Radius fracture Code(s): S52.90XA - Unspecified fracture of unspecified forearm, initial encounter for closed fracture Status: Acute Qualifiers: Laterality: right - Attending Attestation The exam, history, and the medical decision-making described in the above note were completed with the assistance of the mid-level provider. I reviewed and agree with the findings presented. I attest that I had a [id number] encounter with the patient on the same day, and personally performed and documented my assessment and findings in the medical record. Follow-up CT scan of the head with the progression of the right frontal contusion but without any mass-effect or midline shift. Stable neurologic examination. Continue with observation and increase activity status as tolerated. <Curt Crews - Last Filed: 06/01/18 18:13>
[2018-06-01] MEDS: Famotidine PF Inj 20 MG/2 ML Vial IV.PUSH SCH (18:24)
[2018-06-02] MEDS: Senna/Docusate Sodium 8.6/50 MG Tablet PO SCH ×3 (02:15→20:01)
[2018-06-02] MEDS: Chlorhexidine Gluconate 2% 1 Pack (2 Cloths) TOPICAL SCH (04:46)
[2018-06-02] MEDS: Famotidine PF Inj 20 MG/2 ML Vial IV.PUSH SCH ×2 (04:49→16:46)
[2018-06-02] MEDS: niCARdipine Inj 25 MG in Sodium Chlor 0.9% Inj 240 ML IV.CONT PRN ×2 (05:11→07:58)
[2018-06-02 05:49] LABS: Hematocrit 35.7 % (39.0-51.0); Hemoglobin 11.9 gm/dL (13.0-17.0); Mean Corpuscular HGB Conc 33.4 % (32.0-36.0); Mean Corpuscular Hemoglobin 29.4 pg (27.0-34.0); Mean Corpuscular Volume 87.8 fL (80.0-100.0); Mean Platelet Volume 9.1 fL (7.0-11.0); Platelet Count 165 th/mm3 (150-450); Red Blood Count 4.07 mil/mm3 (4.50-5.90); White Blood Count 10.1 th/mm3 (4.0-11.0)
[2018-06-02 08:14] LABS: Anion Gap 12 meq/L (5-15); Blood Urea Nitrogen 20 mg/dL (7-18); Calcium 9.1 mg/dL (8.5-10.1); Chloride 107 meq/L (98-107); Glomerular Filtration Rate Greater Than 89 mL/min (>89); Glucose,Random 100 mg/dL (74-106); Potassium 3.7 meq/L (3.5-5.1); Sodium 141 meq/L (136-145)
--- NOTE | 2018-06-02 09:26 | P.PNNS ---
Subjective Interval history: 06/02/18: Pt awakens to voice. Denies headache, nausea, or vomiting. States chronic blurred vision right eye from issues with his retina. Follows commands well. <Joe Reyes - Last Filed: 06/02/18 09:21> Physical Exam Vital signs: Vital Signs 06/01/18 12:00 06/01/18 16:00 06/01/18 17:00 Temperature 98 F 97.9 F 98 F Pulse Rate 70 72 78 Respiratory Rate 18 18 18 Blood Pressure 155/71 H 145/68 H 153/61 H Pulse Oximetry 06/01/18 18:00 06/01/18 19:00 06/01/18 20:00 Temperature 97 F L 98.7 F Pulse Rate 72 71 71 Respiratory Rate 20 Blood Pressure 144/68 H 136/64 138/65 Pulse Oximetry 06/02/18 00:00 06/02/18 04:00 Temperature 98.5 F Pulse Rate 76 Respiratory Rate 20 18 Blood Pressure 129/61 Pulse Oximetry 95 Intake & Output 06/01/18 06/02/18 06/02/18 18:59 06:59 18:59 Intake Total 250 / 250 Output Total 700 / 700 Balance -450 / -450 Weight 72.8 kg Intake: IV 250 / 250 Cardene Inj 25 MG In NS Inj 240 250 / 250 ML @ 5 MG/HR 50 mls/hr IV.CONT TITRATE PRN Rx#:[id number] Oral 0 / 0 Output: Urine 700 / 700 Other: # Voids 0 - Constitutional no acute distress, cooperative, somnolent - Routine HEENT Exam Head: Absent: normocephalic (Ecchymosis and abrasions right side of his face.) Eye: Present: PERRL. Absent: conjunctival icterus - Routine Respiratory Exam Present: CTA bilaterally. Absent: rhonchi, wheezes - Routine Cardiovascular Exam Present: RRR, S1, S2. Absent: murmur - Routine Abdominal Exam Present: soft, normoactive bowel sounds - Routine Extremities Exam Absent: cyanosis - Routine Neurological Exam Present: alert, oriented X3. Absent: sensory deficit, motor deficit - Detailed Neurological Exam: Coma Scale Eye Opening: Spontaneous Verbal Response: Oriented Motor Response: Obey commands Vicente Coma Scale Total: 15 - Routine Psychiatric Exam Present: normal affect <Joe Reyes - Last Filed: 06/02/18 09:21> Vital signs: Vital Signs 06/01/18 16:00 06/01/18 17:00 06/01/18 18:00 Temperature 97.9 F 98 F 97 F L Pulse Rate 72 78 72 Respiratory Rate 18 18 Blood Pressure 145/68 H 153/61 H 144/68 H Pulse Oximetry 06/01/18 19:00 06/01/18 20:00 06/02/18 00:00 Temperature 98.7 F Pulse Rate 71 71 Respiratory Rate 20 20 Blood Pressure 136/64 138/65 Pulse Oximetry 06/02/18 04:00 Temperature 98.5 F Pulse Rate 76 Respiratory Rate 18 Blood Pressure 129/61 Pulse Oximetry 95 Intake & Output 06/01/18 06/02/18 06/02/18 18:59 06:59 18:59 Intake Total 250 / 250 Output Total 700 / 700 Balance -450 / -450 Weight 72.8 kg Intake: IV 250 / 250 Cardene Inj 25 MG In NS Inj 240 250 / 250 ML @ 5 MG/HR 50 mls/hr IV.CONT TITRATE PRN Rx#:[id number] Oral 0 / 0 Output: Urine 700 / 700 Other: # Voids 0 <Curt Crews - Last Filed: 06/02/18 14:38> Assessment and Plan - Assessment (1) Subarachnoid hemorrhage Code(s): I60.9 - Nontraumatic subarachnoid hemorrhage, unspecified Status: Acute (2) Intraparenchymal hemorrhage of brain Code(s): I61.9 - Nontraumatic intracerebral hemorrhage, unspecified Status: Acute (3) Fall Code(s): W19.XXXA - Unspecified fall, initial encounter Status: Acute (4) Traumatic brain injury with brief (less than 1 hour) loss of consciousness Code(s): S06.9X9A - Unspecified intracranial injury with loss of consciousness of unspecified duration, initial encounter Status: Acute (5) Brain contusion with less than 1 hour loss of consciousness Code(s): S06.2X9A - Diffuse traumatic brain injury with loss of consciousness of unspecified duration, initial encounter Status: Acute (6) Traumatic subarachnoid hematoma with loss of consciousness Code(s): S06.6X9A - Traumatic subarachnoid hemorrhage with loss of consciousness of unspecified duration, initial encounter Status: Acute - Plan Patient had some blossoming now hemorrhagic contusion on Follow up CT head . He is neurologically intact. We will continue with close neurological checks. Continue with current care. Increase activity. Continue with SCD. Continue with GI prophylaxis. <Joe Reyes - Last Filed: 06/02/18 09:21> - Assessment (1) Traumatic brain injury with brief (less than 1 hour) loss of consciousness Code(s): S06.9X9A - Unspecified intracranial injury with loss of consciousness of unspecified duration, initial encounter Status: Acute (2) Brain contusion with less than 1 hour loss of consciousness Code(s): S06.2X9A - Diffuse traumatic brain injury with loss of consciousness of unspecified duration, initial encounter Status: Acute (3) Traumatic subarachnoid hematoma with loss of consciousness Code(s): S06.6X9A - Traumatic subarachnoid hemorrhage with loss of consciousness of unspecified duration, initial encounter Status: Acute (4) Hypertension Code(s): I10 - Essential (primary) hypertension Status: Acute (5) Warfarin-induced coagulopathy Code(s): D68.32 - Hemorrhagic disorder due to extrinsic circulating anticoagulants; T45.515A - Adverse effect of anticoagulants, initial encounter Status: Acute (6) Radius fracture Code(s): S52.90XA - Unspecified fracture of unspecified forearm, initial encounter for closed fracture Status: Acute Qualifiers: Laterality: right - Attending Attestation The exam, history, and the medical decision-making described in the above note were completed with the assistance of the mid-level provider. I reviewed and agree with the findings presented. I attest that I had a [id number] encounter with the patient on the same day, and personally performed and documented my assessment and findings in the medical record. Stable examination. New complaint is left shoulder pain with difficulty abduction of the arm. Will obtain left shoulder x-ray to rule out any fracture. Continue with observation and increase activity status as tolerated. Discussed with patient and updated at bedside. <Curt Crews - Last Filed: 06/02/18 14:38>
--- NOTE | 2018-06-02 12:17 | XR ---
EXAM DATE: 06/02/2018 12:12 PM EDT AGE/SEX: 77 years / Male INDICATIONS: Left shoulder pain due to fall. CLINICAL DATA: This is the patient's subsequent encounter. Patient reports that signs and symptoms h ave been present for 4 - 6 days and indicates a pain score of 7/10. MEDICAL/SURGICAL HISTORY: Congestive heart failure. None. COMPARISON: No prior exams available for comparison. FINDINGS: Bony structures are intact and in normal alignment. Joints are intact without dislocation or signifi cant arthropathy. Osseous density is normal. Soft tissues are unremarkable. No radiopaque foreign bodies seen. CONCLUSION: No acute fracture Electronically signed by: Joe Howell MD 06/02/2018 12:16 PM EDT
--- NOTE | 2018-06-02 12:25 | P.PNCC ---
Subjective Subjective Remarks/Hospital Course: Patient is a 75-year-old male with past medical history significant for chronic atrial fibrillation, chronic Coumadin therapy, history of hypertension, history of CABG and carotid endarterectomy who presented to the emergency department after he sustained a fall from a tree. Apparently he was on the tree trimming some branches when he fell down. Patient is on chronic Coumadin for atrial fibrillation. Patient does not have any recollection of how he might have fallen. He did lose consciousness. ER workup showed small bifrontal hemorrhage and a small SAH. Also he sustained hairline fracture of right distal radius. Rest of trauma work up was negative. Neurosurgery Dr. Crews was consulted. Critical care medicine was requested to admit the patient. I evaluated the patient in the ED. He is slightly anxious but nonfocal. He has some retrograde and antegrade amnesia. Blood pressure was poorly controlled systolic blood pressure was in 240s, patient was started on Cardene infusion for this reason. INR is 1.7 and patient will receive 2 units of FFP, vitamin K 5 mg already given by ED. 06/01 INR 1.4. Having urinary retention with [address] brain ordered for this morning is not done yet. He denies headache/nausea/vomiting. On cardene 2.5 mg/hr. Nurse states he was coughing when she administered meds and suggests speech therapy evaluation. Subjective: 06/02 Speech therapy evaluated and recommends mechanical soft, nectar thick. On cardene drip 6mg/hr, will give po meds in attempt to wean. Patient denies complaint aside from tenderness L proximal humerus. Xray negative for fracture. Wants carlo pierre. Objective Vital Signs / I&O: Vital Signs 06/01/18 16:00 06/01/18 17:00 06/01/18 18:00 Temperature 97.9 F 98 F 97 F L Pulse Rate 72 78 72 Respiratory Rate 18 18 Blood Pressure 145/68 H 153/61 H 144/68 H Pulse Oximetry 06/01/18 19:00 06/01/18 20:00 06/02/18 00:00 Temperature 98.7 F Pulse Rate 71 71 Respiratory Rate 20 20 Blood Pressure 136/64 138/65 Pulse Oximetry 06/02/18 04:00 Temperature 98.5 F Pulse Rate 76 Respiratory Rate 18 Blood Pressure 129/61 Pulse Oximetry 95 Intake & Output 06/01/18 06/02/18 06/02/18 18:59 06:59 18:59 Intake Total 250 / 250 Output Total 700 / 700 Balance -450 / -450 Weight 72.8 kg Intake: IV 250 / 250 Cardene Inj 25 MG In NS Inj 240 250 / 250 ML @ 5 MG/HR 50 mls/hr IV.CONT TITRATE PRN Rx#:[id number] Oral 0 / 0 Output: Urine 700 / 700 Other: # Voids 0 Result Diagrams: 06/05/18 21:58 06/05/18 21:58 Objective Remarks: GENERAL: Well-developed well-nourished, sitting up in bed, alert. SKIN: Warm/dry. Multiple small abrasions and to the right side of the face. Ecchymosis above right upper lip. HEAD: No carlson signs, normocephalic. EYES: Pupils equal and round. No scleral icterus. No injection or drainage. ENT: No nasal bleeding or discharge. NECK: Trachea midline. No JVD. Well-healed left carotid endarterectomy scar CARDIOVASCULAR: Regular rate and rhythm. 2/6 systolic murmur LSB.. Well- healed CABG scar RESPIRATORY: No accessory muscle use. Clear to auscultation. Breath sounds equal bilaterally. GASTROINTESTINAL: Abdomen soft, non-tender, nondistended. Hepatic and splenic margins not palpable. MUSCULOSKELETAL: No obvious deformities. Splint R forearm. Tender to palpation L proximal humerus NEUROLOGICAL: Awake and alert and oriented, GCS 15. 5/5 hip flexor; ankle plantar and dorsiflexion bilaterally. Strength 5/5 program evaluation consultant bilaterally. Pain with movement of Left shoulder with L proximal humerus tenderness, no deformity. Assessment and Plan - Problem List (1) Subarachnoid hemorrhage Code(s): I60.9 - Nontraumatic subarachnoid hemorrhage, unspecified Status: Acute (2) Intraparenchymal hemorrhage of brain Code(s): I61.9 - Nontraumatic intracerebral hemorrhage, unspecified Status: Acute (3) Laceration of arm Code(s): S41.119A - Laceration without foreign body of unspecified upper arm, initial encounter Status: Acute (4) CAD (coronary artery disease) Code(s): I25.10 - Atherosclerotic heart disease of [place] coronary artery without angina pectoris Status: Chronic (5) Fall Code(s): W19.XXXA - Unspecified fall, initial encounter Status: Acute (6) Hx of CABG Code(s): Z95.1 - Presence of aortocoronary bypass graft Status: Chronic (7) Hypertension Code(s): I10 - Essential (primary) hypertension Status: Chronic (8) Paroxysmal atrial fibrillation Code(s): I48.0 - Paroxysmal atrial fibrillation Status: Chronic - Assessment and Plan Plan: NEURO: Status post fall Small bilateral frontal intraparenchymal hemorrhages Subarachnoid hemorrhage in the right sylvian fissure -Neurosurgery consult with Dr. Crews -Follow-up CT scan 06/02 with evolution of hemorrhage, but no mass effect - no indication for seizure prophylaxis at this time -Avoid hypoxia, hyponatremia, hypercarbia RESP: -RA -DuoNeb every 6 hours as needed CV: Hypertensive emergency Atrial fibrillation by history Coronary artery disease status post CABG Status post left carotid endarterectomy -Cardene infusion to keep SBP less than 160, currently at 6 mg/hr. Start norvasc 5 mg dose now. -Labetalol prn to facilitate cardene weaning. -Increase Carvedilol 6.25 mill grams p.o. twice daily GI: -Speech therapy evaluated. Advanced diet to mechanical soft nectar thickened liquids. pured with meds. -Famotidine, bowel regimen : s/p TURP Urinary retention Suarez in place now due to urinary retention over 1 L. Flomax 0.4 mg po daily when able to swallow (can't be crushed). Outpatient urologist is Dr. Teixeira ID: -Monitor for infection HEME: Coagulopathy from chronic Coumadin use -Received 2 units of FFP , Vit K 5 mg - Repeat INR 1.4 ENDO: -Electrolyte replacement per ICU protocol MSK Hairline nondisplaced fracture of the distal radius. -Ortho consult, Splint L shoulder tenderness Xray negative PROPH: -Bilateral lower extremity SCDs. Chemical DVT prophylaxis contraindicated due to intracranial hemorrhage, IV famotidine for GI prophylaxis LINES: -Utilize peripheral IVs Patient and his updated at bedside. Level 2 Followup
[2018-06-02] MEDS ORDERED: Carvedilol 6.25 MG Tablet PO ONE (12:35)
[2018-06-02] MEDS ORDERED: amLODIPine 5 MG Tablet PO ONE (12:39)
[2018-06-02] MEDS: Carvedilol 6.25 MG Tablet PO SCH (20:00)
[2018-06-03] MEDS: Famotidine PF Inj 20 MG/2 ML Vial IV.PUSH SCH ×2 (05:00→19:21)
[2018-06-03] MEDS: Chlorhexidine Gluconate 2% 1 Pack (2 Cloths) TOPICAL SCH (05:01)
[2018-06-03 05:20] LABS: Anion Gap 10 meq/L (5-15); Blood Urea Nitrogen 19 mg/dL (7-18); Calcium 8.6 mg/dL (8.5-10.1); Carbon Dioxide 24.5 meq/L (21.0-32.0); Chloride 109 meq/L (98-107); Glomerular Filtration Rate Greater Than 89 mL/min (>89); Glucose,Random 99 mg/dL (74-106); Potassium 3.7 meq/L (3.5-5.1); Sodium 143 meq/L (136-145)
[2018-06-03] MEDS: Labetalol HCl Inj 100 MG/20 ML Vial IV.PUSH PRN (06:26)
--- NOTE | 2018-06-03 07:49 | MB ---
cc: Robert Tomas MD DATE: 06/03/2018 REASON FOR CONSULTATION: Right distal radius fracture. CONSULTING PHYSICIAN: Dr. Contreras. HISTORY OF PRESENT ILLNESS: Zen is a 75-year-old male who has a history of hypertension, atrial fibrillation and carotid stenosis. He was in a tree trimming branches. He fell. He does not recall the injury at all. He did have loss of consciousness. He presented to the emergency room. He was admitted to the intensive care unit. He is found to have a small subarachnoid hemorrhage. He was also found to have a minimally displaced right distal radius fracture. He is currently awake and alert in the intensive care unit. He cannot explain or describe the fall. He has soreness all over. He has increased wrist pain. The pain is worse with movement. PAST MEDICAL HISTORY: Atrial fibrillation, congestive heart failure, high cholesterol, carotid stenosis. PAST SURGICAL HISTORY: Coronary artery bypass, cardiac catheterization, carotid endarterectomy. ALLERGIES: NO KNOWN DRUG ALLERGIES. MEDICATIONS: Please see EMR for complete list of inpatient medications. This was reviewed. Home medications include carvedilol, gabapentin and Coumadin. SOCIAL HISTORY: The patient denies alcohol, tobacco or drug use. FAMILY HISTORY: Noncontributory. REVIEW OF SYSTEMS: The patient denies weight loss, fevers, chills, headache, visual changes, hearing loss, chest pain, palpitations, shortness of breath, nausea or vomiting, urinary or bowel change, neck or back pain, skin rashes, weakness or numbness of extremities or depression. He complains of right wrist pain. The pain is worse with movement. LABORATORY DATA: White blood cell count is 10.1, hematocrit of 35, platelet count of 165. INR of 1.4. Potassium of 3.7. IMAGING STUDIES: X-rays of the right wrist were reviewed. X-rays reveal a minimally displaced right distal radius fracture. The radiocarpal joint is well aligned. PHYSICAL EXAMINATION: GENERAL: The patient is a well-developed, well-nourished 77-year-old male. He is in no acute distress. He is awake. He does not recall the injury or fall. VITAL SIGNS: Temperature 98.4, pulse 76, respirations 33, blood pressure 125/83, O2 saturation is 97% on room air. HEENT: Head: The patient is normocephalic. Pupils are equal. NECK: Soft, nontender. The trachea is in the midline. ABDOMEN: Soft, nontender, and nondistended. EXTREMITIES: Examination of right arm reveals no obvious pain or deformity with shoulder or elbow motion. He is in a well-padded splint. He has good capillary refill in his fingers. He has mild tenderness to palpation over the distal radius. He has minimal pain with gentle finger motion. Examination of left arm reveals no pain with shoulder, elbow or wrist motion. Skin is intact. Radial pulses palpable. Examination of bilateral lower extremities reveals no pain with hip, knee or ankle motion. Skin is intact. Sensation is intact to both lower extremities. IMPRESSION: 1. Coronary artery disease. 2. Carotid stenosis. 3. Fall from tree. 4. Subarachnoid hemorrhage. 5. Minimally displaced right distal radius fracture. PLAN: Treatment options were discussed with the patient. At this point, I would recommend nonsurgical treatment. The patient will remain in the splint. He should not use his right arm for any activities. He should work on gentle finger range of motion. He was advised to take calcium and vitamin D. He will need to follow up in office in approximately 2 weeks for repeat x-rays of right wrist. He understands that if fracture displaces, he may need surgical intervention. All questions were answered. A mid-level provider in my office, nurse practitioner or PA, may see this patient on a follow-up basis and continue to implement the objective of this plan including: Starting or adjusting medications, injections of muscle, tendon, bursa or joints, cast application, orthotic or brace application, physical therapy, further radiographic studies including x-ray, MRI, CT, ultrasounds or bone scan, vascular studies, neurologic studies, or other specialist consultations, and proceeding with surgical management as appropriate. [place] prescription drug monitoring database has been queried and verified prior to prescribing the controlled substance. Acute pain exception. This patient has a normal predicted physiological and time-limited response to an adverse mechanical stimulus associated with surgery and trauma. There is a lack of alternative treatment options other than prescribed and not narcotic medication. MD KUN Daly/YANY , 07:26 AM , 07:48 AM JENNIFER
--- NOTE | 2018-06-03 09:35 | P.PNNS ---
Subjective Interval history: 06/03/18: Pt awake and alert. Intermittent mild headache. No n/v. No paresthesias. Pt chronic history of blurred vision right eye. <Joe Reyes - Last Filed: 06/03/18 10:36> Physical Exam Vital signs: Vital Signs 06/02/18 12:00 06/02/18 16:00 06/02/18 20:00 Temperature 98.0 F 97.7 F 98.8 F Pulse Rate 78 98 H 78 Respiratory Rate 23 24 23 Blood Pressure 157/70 H 174/95 H 116/56 L Pulse Oximetry 97 98 99 06/03/18 00:00 06/03/18 04:00 Temperature 98.5 F 98.4 F Pulse Rate 66 96 H Respiratory Rate 28 H 33 H Blood Pressure 130/67 125/83 Pulse Oximetry 97 98 Intake & Output 06/02/18 06/03/18 06/03/18 18:59 06:59 18:59 Intake Total 240 / 240 250 / 250 Output Total 1000 / 1000 450 / 450 Balance -760 / -760 -200 / -200 Weight 72.8 kg Intake: IV 250 / 250 Cardene Inj 25 MG In NS Inj 240 250 / 250 ML @ 5 MG/HR 50 mls/hr IV.CONT TITRATE PRN Rx#:[id number] Oral 240 / 240 0 / 0 Output: Urine 1000 / 1000 450 / 450 Other: # Voids 0 0 - Constitutional no acute distress, thin - Routine HEENT Exam Head: Absent: normocephalic (right facial ecchymosis.) Eye: Present: PERRL. Absent: conjunctival icterus - Routine Respiratory Exam Present: CTA bilaterally. Absent: respiratory distress, rhonchi, wheezes - Routine Cardiovascular Exam Present: RRR, S1, S2. Absent: murmur - Routine Abdominal Exam Present: soft, normoactive bowel sounds. Absent: tenderness - Routine Extremities Exam Present: full ROM. Absent: cyanosis, edema - Routine Skin Exam Present: intact, ecchymosis (right side of face.). Absent: cyanosis, erythema - Routine Neurological Exam Present: alert, oriented X3, moving all extremities. Absent: sensory deficit, motor deficit - Detailed Neurological Exam: Coma Scale Eye Opening: Spontaneous Verbal Response: Oriented Motor Response: Obey commands Vicente Coma Scale Total: 15 - Routine Psychiatric Exam Present: normal affect, cooperative. Absent: depressed, agitated <Joe Reyes - Last Filed: 06/03/18 10:36> Vital signs: Vital Signs 06/02/18 12:00 06/02/18 16:00 06/02/18 20:00 Temperature 98.0 F 97.7 F 98.8 F Pulse Rate 78 98 H 78 Respiratory Rate 23 24 23 Blood Pressure 157/70 H 174/95 H 116/56 L Pulse Oximetry 97 98 99 06/03/18 00:00 06/03/18 04:00 Temperature 98.5 F 98.4 F Pulse Rate 66 96 H Respiratory Rate 28 H 33 H Blood Pressure 130/67 125/83 Pulse Oximetry 97 98 Intake & Output 06/02/18 06/03/18 06/03/18 18:59 06:59 18:59 Intake Total 240 / 240 250 / 250 Output Total 1000 / 1000 450 / 450 Balance -760 / -760 -200 / -200 Weight 72.8 kg Intake: IV 250 / 250 Cardene Inj 25 MG In NS Inj 240 250 / 250 ML @ 5 MG/HR 50 mls/hr IV.CONT TITRATE PRN Rx#:[id number] Oral 240 / 240 0 / 0 Output: Urine 1000 / 1000 450 / 450 Other: # Voids 0 0 <Curt Crews - Last Filed: 06/03/18 10:44> Assessment and Plan - Assessment (1) Subarachnoid hemorrhage Code(s): I60.9 - Nontraumatic subarachnoid hemorrhage, unspecified Status: Acute (2) Intraparenchymal hemorrhage of brain Code(s): I61.9 - Nontraumatic intracerebral hemorrhage, unspecified Status: Acute (3) Fall Code(s): W19.XXXA - Unspecified fall, initial encounter Status: Acute (4) Traumatic brain injury with brief (less than 1 hour) loss of consciousness Code(s): S06.9X9A - Unspecified intracranial injury with loss of consciousness of unspecified duration, initial encounter Status: Acute (5) Brain contusion with less than 1 hour loss of consciousness Code(s): S06.2X9A - Diffuse traumatic brain injury with loss of consciousness of unspecified duration, initial encounter Status: Acute (6) Traumatic subarachnoid hematoma with loss of consciousness Code(s): S06.6X9A - Traumatic subarachnoid hemorrhage with loss of consciousness of unspecified duration, initial encounter Status: Acute - Plan Patient had some blossoming now hemorrhagic contusion on Follow up CT head . He is neurologically intact. We will continue with close neurological checks. Continue with current care. Increase activity. Continue with SCD. Continue with GI prophylaxis. Continue with Neuro checks. Cognitive evaluation. D/C Suarez Weaning Cardene, off since midnight. <Joe Reyes - Last Filed: 06/03/18 10:36> - Assessment (1) Traumatic brain injury with brief (less than 1 hour) loss of consciousness Code(s): S06.9X9A - Unspecified intracranial injury with loss of consciousness of unspecified duration, initial encounter Status: Acute (2) Brain contusion with less than 1 hour loss of consciousness Code(s): S06.2X9A - Diffuse traumatic brain injury with loss of consciousness of unspecified duration, initial encounter Status: Acute (3) Traumatic subarachnoid hematoma with loss of consciousness Code(s): S06.6X9A - Traumatic subarachnoid hemorrhage with loss of consciousness of unspecified duration, initial encounter Status: Acute (4) Hypertension Code(s): I10 - Essential (primary) hypertension Status: Acute (5) Warfarin-induced coagulopathy Code(s): D68.32 - Hemorrhagic disorder due to extrinsic circulating anticoagulants; T45.515A - Adverse effect of anticoagulants, initial encounter Status: Acute (6) Radius fracture Code(s): S52.90XA - Unspecified fracture of unspecified forearm, initial encounter for closed fracture Status: Acute Qualifiers: Laterality: right - Attending Attestation The exam, history, and the medical decision-making described in the above note were completed with the assistance of the mid-level provider. I reviewed and agree with the findings presented. I attest that I had a [id number] encounter with the patient on the same day, and personally performed and documented my assessment and findings in the medical record. <Curt Crews - Last Filed: 06/03/18 10:44>
[2018-06-03] MEDS: Carvedilol 6.25 MG Tablet PO SCH ×2 (10:19→20:09)
[2018-06-03] MEDS: Senna/Docusate Sodium 8.6/50 MG Tablet PO SCH ×2 (10:19→20:10)
[2018-06-03] MEDS: amLODIPine 5 MG Tablet PO SCH (10:19)
--- NOTE | 2018-06-03 15:46 | P.PNIM ---
Subjective Interval history: "I want to go home and walk my dog " "I have a little pain in my back " Patient resting in bed, stable, plan is to continue neuro check, mobilization, blood pressure control and monitoring Physical Exam Vital signs: Vital Signs 06/02/18 16:00 06/02/18 20:00 06/03/18 00:00 Temperature 97.7 F 98.8 F 98.5 F Pulse Rate 98 H 78 66 Respiratory Rate 24 23 28 H Blood Pressure 174/95 H 116/56 L 130/67 Pulse Oximetry 98 99 97 06/03/18 04:00 Temperature 98.4 F Pulse Rate 96 H Respiratory Rate 33 H Blood Pressure 125/83 Pulse Oximetry 98 Intake & Output 06/02/18 06/03/18 06/03/18 18:59 06:59 18:59 Intake Total 240 / 240 250 / 250 Output Total 1000 / 1000 450 / 450 Balance -760 / -760 -200 / -200 Weight 72.8 kg Intake: IV 250 / 250 Cardene Inj 25 MG In NS Inj 240 250 / 250 ML @ 5 MG/HR 50 mls/hr IV.CONT TITRATE PRN Rx#:[id number] Oral 240 / 240 0 / 0 Output: Urine 1000 / 1000 450 / 450 Other: # Voids 0 0 Narrative: GENERAL: This is a well-nourished, well-developed patient, in no apparent distress. SKIN: No rashes, warm and dry HEAD: Atraumatic. Normocephalic. EYES: Pupils equal round and reactive. Extraocular motions intact. No scleral icterus. ENT: Nose without bleeding, or drainage, Airway patent. NECK: Trachea midline. Supple CARDIOVASCULAR: Regular rate and rhythm without murmurs, gallops, or rubs. RESPIRATORY: Fair air entry bilaterally. No wheezes, rales, or rhonchi. GASTROINTESTINAL: Abdomen soft, non-tender, nondistended. Positive bowel sounds MUSCULOSKELETAL: Extremities without clubbing, cyanosis, or edema. Pedal pulses appreciated NEUROLOGICAL: Awake and alert. Moves all extremity. Normal speech.no focal neurological deficit Results - Labs CBC & Chem 7: 06/02/18 04:40 06/03/18 03:36 Laboratory Results - last 24 hr 06/03/18 03:36 Sodium 143 Potassium 3.7 Chloride 109 H Carbon Dioxide 24.5 Anion Gap 10 BUN 19 H Creatinine 0.63 Estimated GFR Greater than 89 Random Glucose 99 Calcium 8.6 Assessment and Plan - Plan Patient is a 75-year-old male with past medical history significant for chronic atrial fibrillation, chronic Coumadin therapy, history of hypertension, history of CABG and carotid endarterectomy who presented to the emergency department after he sustained a fall from a tree. Apparently he was on the tree trimming some branches when he fell down. Patient is on chronic Coumadin for atrial fibrillation. Patient does not have any recollection of how he might have fallen. He did lose consciousness. ER workup showed small bifrontal hemorrhage and a small SAH. Also he sustained hairline fracture of right distal radius. Rest of trauma work up was negative. Neurosurgery Dr. Crews was consulted. Critical care medicine was requested to admit the patient. I evaluated the patient in the ED. He is slightly anxious but nonfocal. He has some retrograde and antegrade amnesia. Blood pressure was poorly controlled systolic blood pressure was in 240s, patient was started on Cardene infusion for this reason. INR is 1.7 and patient will receive 2 units of FFP, vitamin K 5 mg already given by ED. 06/01 INR 1.4. Having urinary retention with [address] brain ordered for this morning is not done yet. He denies headache/nausea/vomiting. On cardene 2.5 mg/hr. Nurse states he was coughing when she administered meds and suggests speech therapy evaluation. 06/02 Speech therapy evaluated and recommends mechanical soft, nectar thick. On cardene drip 6mg/hr, will give po meds in attempt to wean. Patient denies complaint aside from tenderness L proximal humerus. Xray negative for fracture. Wants carlo wattsa. 06/03:Patient resting in bed, stable, plan is to continue neuro check, mobilization, blood pressure control and monitoring GENERAL A/P: Status post fall Small bilateral frontal intraparenchymal hemorrhages Subarachnoid hemorrhage in the right sylvian fissure -Neurosurgery consult with Dr. Crews -Follow-up CT scan 06/02 with evolution of hemorrhage, but no mass effect - no indication for seizure prophylaxis at this time -Avoid hypoxia, hyponatremia, hypercarbia Hypertensive emergency Atrial fibrillation by history Coronary artery disease status post CABG Status post left carotid endarterectomy -Cardene infusion to keep SBP less than 160, currently at 6 mg/hr. Start norvasc 5 mg dose now. -Labetalol prn to facilitate cardene weaning. -Increase Carvedilol 6.25 mill grams p.o. twice daily -Speech therapy evaluated. Advanced diet to mechanical soft nectar thickened liquids. pured with meds. -Famotidine, bowel regimen s/p TURP Urinary retention Suarez in place now due to urinary retention over 1 L. Flomax 0.4 mg po daily when able to swallow (can't be crushed). Outpatient urologist is Dr. Teixeira Coagulopathy from chronic Coumadin use -Received 2 units of FFP , Vit K 5 mg - Repeat INR 1.4 Hairline nondisplaced fracture of the distal radius. -Ortho consult, Splint L shoulder tenderness Xray negative PROPH: -Bilateral lower extremity SCDs. Chemical DVT prophylaxis contraindicated due to intracranial hemorrhage, IV famotidine for GI prophylaxis LINES: -Utilize peripheral IVs Patient and his updated at bedside.
[2018-06-03] MEDS: Timolol 0.5% Drops 5 ML Bottle LEFT EYE SCH (19:20)
[2018-06-03] MEDS: DIFLUPREDNATE 0.05% LEFT EYE SCH ×2 (19:21→20:10)
[2018-06-03] MEDS: OPTH LEFT EYE SCH ×2 (19:21→20:10)
[2018-06-03] MEDS: Brimonidine 0.2% Opth Drops 5 ML Bottle LEFT EYE SCH (19:21)
[2018-06-03] MEDS: GATIFLOXACIN 0.5% LEFT EYE SCH ×2 (19:21→20:10)
[2018-06-03] MEDS: Acetaminophen 325 MG Tablet PO PRN (19:22)
[2018-06-04] MEDS: Chlorhexidine Gluconate 2% 1 Pack (2 Cloths) TOPICAL SCH (03:11)
[2018-06-04] MEDS: Famotidine PF Inj 20 MG/2 ML Vial IV.PUSH SCH ×2 (04:23→16:37)
[2018-06-04] MEDS: Acetaminophen 325 MG Tablet PO PRN ×2 (05:13→16:36)
[2018-06-04] MEDS: Senna/Docusate Sodium 8.6/50 MG Tablet PO SCH ×2 (09:20→21:15)
[2018-06-04] MEDS: amLODIPine 5 MG Tablet PO SCH (09:20)
[2018-06-04] MEDS: Brimonidine 0.2% Opth Drops 5 ML Bottle LEFT EYE SCH ×3 (09:21→18:36)
[2018-06-04] MEDS: DIFLUPREDNATE 0.05% LEFT EYE SCH ×4 (09:21→21:17)
[2018-06-04] MEDS: OPTH LEFT EYE SCH ×4 (09:21→21:18)
[2018-06-04] MEDS: GATIFLOXACIN 0.5% LEFT EYE SCH ×4 (09:21→21:18)
[2018-06-04] MEDS: Timolol 0.5% Drops 5 ML Bottle LEFT EYE SCH ×3 (09:21→18:36)
[2018-06-04] MEDS: NEPAFENAC 0.3% LEFT EYE SCH (09:22)
[2018-06-04] MEDS: Carvedilol 6.25 MG Tablet PO SCH ×2 (09:22→21:15)
--- NOTE | 2018-06-04 10:35 | P.PNNS ---
Subjective Interval history: Patient reports no new problems Physical Exam Vital signs: Vital Signs 06/03/18 12:00 06/03/18 16:00 06/03/18 20:00 Temperature 98.9 F 99.1 F 98.7 F Pulse Rate 65 77 77 Respiratory Rate 18 18 19 Blood Pressure 141/68 H 141/71 H 140/67 Pulse Oximetry 98 99 99 06/03/18 20:05 06/04/18 00:00 06/04/18 04:16 Temperature 98.9 F Pulse Rate 71 76 Respiratory Rate 19 19 19 Blood Pressure 148/67 H 160/93 H Pulse Oximetry 99 99 06/04/18 05:42 Temperature Pulse Rate Respiratory Rate 19 Blood Pressure Pulse Oximetry Intake & Output 06/03/18 06/04/18 06/04/18 18:59 06:59 18:59 Intake Total 240 / 240 240 / 240 Output Total 450 / 450 700 / 700 Balance -210 / -210 -460 / -460 Weight 68.6 kg Intake: Oral 240 / 240 240 / 240 Output: Urine 450 / 450 Urine Amount (Catheter) 700 / 700 Indwelling Urethral Catheter 700 / 700 Other: # Bowel Movements 0 # Incontinent Bowel Movements 0 Narrative: Patient is alert and awake. He follows commands well. Moves all extremities well. - Urinary Catheter Management Indwelling Urethral Catheter Cath placed during this visit: no Assessment and Plan - Assessment (1) Intraparenchymal hemorrhage of brain Code(s): I61.9 - Nontraumatic intracerebral hemorrhage, unspecified Status: Acute (2) Traumatic brain injury with brief (less than 1 hour) loss of consciousness Code(s): S06.9X9A - Unspecified intracranial injury with loss of consciousness of unspecified duration, initial encounter Status: Acute (3) Traumatic subarachnoid hematoma with loss of consciousness Code(s): S06.6X9A - Traumatic subarachnoid hemorrhage with loss of consciousness of unspecified duration, initial encounter Status: Acute - Plan Patient has been stable. Beginning to get out of bed. Neurologically no change. We will repeat CT of the head. If stable may be transferred to floor
--- NOTE | 2018-06-04 11:32 | CT ---
EXAM DATE: 06/04/2018 11:21 AM EDT AGE/SEX: 77 years / Male INDICATIONS: Follow up. Intracranial hemorrhage. CLINICAL DATA: This is the patient's subsequent encounter. Patient reports that signs and symptoms h ave been present for 1 week and indicates a pain score of 0/10. MEDICAL/SURGICAL HISTORY: Congestive heart failure. CABG. RADIATION DOSE: 56.35 CTDI (mGy) COMPARISON: [facility] [place], CT HEAD W/O CONTRAST, 06/01/2018. . TECHNIQUE: CT of the head without contrast. Using automated exposure control and adjustment of the mA and/or kV according to patient size, radiation dose was kept as low as reasonably achievable to ob tain optimal diagnostic quality images. DICOM format image data is available electronically for revi ew and comparison. FINDINGS: Today's exam is compared to the prior study. There is a stable focal area of acute intraparenchymal h emorrhage involving the right frontal lobe measuring 1.8 cm. This is stable and unchanged compared to the prior exam. There is a small amount of edema surrounding the hemorrhage. There continues to be a few tiny punctate hemorrhagic contusions just above this focal area of hemorrhage in the right front al lobe. This is also stable compared to the prior examination. No change in the tiny punctate contus ion the left frontal lobe. No change in the small amount of subarachnoid hemorrhage in the right sylv mikey fissure. No new areas of hemorrhage are demonstrated. The ventricles remain normal in size and mi dline in position. Posterior fossa stable. CONCLUSION: 1. Compared to the prior examination of 06/01/2018, there have been no new or significant changes with the bilateral hemorrhagic contusions. No change in the small amount of subarachnoid hemorrhage in th e right sylvian fissure. 2. No new areas of hemorrhage are demonstrated. Electronically signed by: Roberto Roy MD 06/04/2018 11:30 AM EDT
--- NOTE | 2018-06-04 13:38 | P.CONFP ---
History of Present Illness Service: primary care Consult date: 06/04/18 Primary Care Provider: Haroldo Castro DO Family Provider: Haroldo Castro DO Chief Complaint: Fall History of Present Illness: pt was triming a tree when a limb fell and knocked him from the ladder and he suffered multiple bruises amall lacerations a fractured right forearm and a SDH this was complicated by thee fact thast he is anticoagulated Review of Systems Constitutional: Reports weakness Cardiovascular: Reports rapid, pounding, or irregular heartbeat Musculoskeletal: Reports body aches, Reports joint swelling Neurologic: Reports confusion PMFSH - History History Provided By: Patient - Medical History Medical History: Medical History (Last Reviewed 06/03/18 @ 07:23 by Erika Robert) Atrial fibrillation CHF (congestive heart failure) High triglycerides - Surgical History Surgical History: Surgical History (Last Reviewed 06/02/18 @ 13:05 by Tiffanie Workman) Hx of CABG Hx of cardiac cath Hx of cardiac cath - Tobacco History Second Hand Smoke Exposure: No Smoking Status: Former smoker - Alcohol History How Often Do You Have a Drink Containing Alcohol: Monthly or less - Substance Use History Substance History: No History of Abuse - Travel History Recent Travel in the [place] Within the Last 8 Weeks: No Recent Travel Out of the Country Within the Last 8 Weeks: No - Immunization History Tetanus Immunization: Unsure Hx Influenza Vaccine This Season: Yes Medications and Allergies Active Medications: Active Medications Acetaminophen (Tylenol) 650 mg PO Q4H PRN PRN Reason: PAIN 1-10 OR TEMP > 100.4 F Last Admin: 06/04/18 05:13 Dose: 650 mg Al Hydroxide/Mg Hydroxide (Milk Of Vanna Lirani) 30 ml PO Q12H PRN PRN Reason: Mild Constipation Albuterol (Duoneb Neb (Prn)) 1 ampul NEB Q2HR NEB PRN PRN Reason: SHORTNESS OF BREATH Amlodipine Besylate (Norvasc) 5 mg PO DAILY [facility] Last Admin: 06/04/18 09:20 Dose: 5 mg Bisacodyl (Dulcolax Supp) 10 mg RECTAL DAILY PRN PRN Reason: SEVERE CONSITIPATION Brimonidine Tartrate (Alphagan 0.2% Opth Drops) 1 drops LEFT EYE TID [facility] Last Admin: 06/04/18 09:21 Dose: 1 drops Carvedilol (Coreg) 6.25 mg PO BID [facility] Last Admin: 06/04/18 09:22 Dose: 6.25 mg Chlorhexidine Gluconate (Chlorhexidine 2% Cloth) 3 pack TOPICAL DAILY@0400 [facility] Stop: 06/06/18 03:59 Last Admin: 06/04/18 03:11 Dose: 3 pack Chlorhexidine Gluconate (Chlorhexidine 2% Cloth) 3 pack TOPICAL DAILY@0400 PRN PRN Reason: Extra cloth needed Stop: 06/06/18 03:59 Famotidine (Pepcid Pf Inj) 20 mg IV.PUSH Q12H [facility] Last Admin: 06/04/18 04:23 Dose: 20 mg Gabapentin (Neurontin) 300 mg PO DAILY [facility] Last Admin: 06/01/18 09:54 Dose: 300 mg Gatifloxacin (Zymaxid 0.5% Opth Drops) 1 drop LEFT EYE QID [facility] Last Admin: 06/04/18 09:21 Dose: 1 drop Nicardipine HCl 25 mg/ Sodium (Chloride) 250 mls @ 50 mls/hr IV.CONT TITRATE PRN; Protocol PRN Reason: Per Protocol Last Titration: 06/03/18 00:05 Dose: Infused Labetalol HCl (Trandate Inj) 10 mg IV.PUSH Q4H PRN PRN Reason: BLOOD PRESSURE MANAGEMENT Last Admin: 06/03/18 06:26 Dose: 10 mg Lactulose (Lactulose Liq) 30 ml PO DAILY PRN PRN Reason: SEVERE CONSITIPATION [facility] [place] Med: Difluprednate ( Durezol) Oph Emulsion 0.05% 0 each LEFT EYE QID [facility] Last Admin: 06/04/18 09:21 Dose: 1 each Pat Own Med: Nepafenac (Ilevro) Oph Susp 0.3% 0 each LEFT EYE DAILY [facility] Last Admin: 06/04/18 09:22 Dose: 1 each Senna/Docusate Sodium (Radhika-Colace) 1 tab PO BID [facility] Last Admin: 06/04/18 09:20 Dose: 1 tab Sennosides (Senokot) 17.2 mg PO Q12H PRN PRN Reason: Moderate Constipation Sodium Chloride (Ns Flush) 2 ml IV.FLUSH BID [facility] Last Admin: 06/04/18 09:22 Dose: 2 ml Sodium Chloride (Ns Flush) 2 ml IV.FLUSH PRN PRN PRN Reason: FLUSH AFTER USING IV ACCESS Last Admin: 05/31/18 21:44 Dose: 2 ml Tamsulosin HCl (Flomax) 0.4 mg PO DAILY [facility] Last Admin: 06/04/18 09:20 Dose: 0.4 mg Timolol Maleate (Timoptic 0.5% Drops) 1 drops LEFT EYE TID [facility] Last Admin: 06/04/18 09:21 Dose: 1 drops Allergies Allergy/AdvReac Type Severity Reaction Status Date / Time No Known Allergies Allergy Uncoded 01/31/16 13:08 Home Medications Medication Instructions Recorded Confirmed Type carvedilol [Coreg] 3.125 mg PO BID 05/31/18 05/31/18 History difluprednate [Durezol] 1 drp OPHTHALMIC (EYE) QID 05/31/18 05/31/18 History gabapentin 300 mg PO DAILY 05/31/18 05/31/18 History warfarin [Coumadin] 3 mg PO DAILY 05/31/18 05/31/18 History Exam Vital signs: Vital Signs 06/03/18 16:00 06/03/18 20:00 06/03/18 20:05 Temperature 99.1 F 98.7 F Pulse Rate 77 77 Respiratory Rate 18 19 19 Blood Pressure 141/71 H 140/67 Pulse Oximetry 99 99 06/04/18 00:00 06/04/18 04:16 06/04/18 05:42 Temperature 98.9 F Pulse Rate 71 76 Respiratory Rate 19 19 19 Blood Pressure 148/67 H 160/93 H Pulse Oximetry 99 99 06/04/18 08:00 06/04/18 09:00 Temperature 98.3 F Pulse Rate 68 62 Respiratory Rate 39 H Blood Pressure 119/60 Pulse Oximetry 98 Intake & Output 06/03/18 06/04/18 06/04/18 18:59 06:59 18:59 Intake Total 240 / 240 240 / 240 Output Total 450 / 450 700 / 700 Balance -210 / -210 -460 / -460 Weight 68.6 kg Intake: Oral 240 / 240 240 / 240 Output: Urine 450 / 450 Urine Amount (Catheter) 700 / 700 Indwelling Urethral Catheter 700 / 700 Other: # Bowel Movements 0 # Incontinent Bowel Movements 0 - Routine HEENT Exam Head: Present: abrasion - Routine Respiratory Exam Present: CTA bilaterally - Routine Cardiovascular Exam Present: RRR - Detailed Upper Extremity Exam Shoulder/Upper Arm: Right normal inspection (r forearm casted) Results - Labs Result diagrams: 06/02/18 04:40 06/03/18 03:36 - Imaging Impressions Head CT 06/04/18 00:00 CONCLUSION: 1. Compared to the prior examination of 06/01/2018, there have been no new or significant changes with the bilateral hemorrhagic contusions. No change in the small amount of subarachnoid hemorrhage in the right sylvian fissure. 2. No new areas of hemorrhage are demonstrated. Assessment and Plan - Assessment (1) Subarachnoid hemorrhage Code(s): I60.9 - Nontraumatic subarachnoid hemorrhage, unspecified Status: Acute (2) Subdural hemorrhage Code(s): I62.00 - Nontraumatic subdural hemorrhage, unspecified Status: Acute (3) Intraparenchymal hemorrhage of brain Code(s): I61.9 - Nontraumatic intracerebral hemorrhage, unspecified Status: Acute (4) Laceration of arm Code(s): S41.119A - Laceration without foreign body of unspecified upper arm, initial encounter Status: Acute (5) Fall Code(s): W19.XXXA - Unspecified fall, initial encounter Status: Acute (6) Traumatic brain injury with brief (less than 1 hour) loss of consciousness Code(s): S06.9X9A - Unspecified intracranial injury with loss of consciousness of unspecified duration, initial encounter Status: Acute (7) Brain contusion with less than 1 hour loss of consciousness Code(s): S06.2X9A - Diffuse traumatic brain injury with loss of consciousness of unspecified duration, initial encounter Status: Acute - Assessment and Plan Discussed Condition With: patient advised not to climb any ladders Discharge Planning: will discharge to med surg anticipate dc home soon
[2018-06-04] MEDS: Labetalol HCl Inj 100 MG/20 ML Vial IV.PUSH PRN (16:48)
[2018-06-05] MEDS: Chlorhexidine Gluconate 2% 1 Pack (2 Cloths) TOPICAL SCH (05:48)
[2018-06-05] MEDS: Famotidine PF Inj 20 MG/2 ML Vial IV.PUSH SCH ×2 (05:48→17:54)
[2018-06-05] MEDS: Timolol 0.5% Drops 5 ML Bottle LEFT EYE SCH ×3 (08:41→17:55)
[2018-06-05] MEDS: Brimonidine 0.2% Opth Drops 5 ML Bottle LEFT EYE SCH ×3 (08:42→17:55)
[2018-06-05] MEDS: OPTH LEFT EYE SCH ×3 (08:43→17:55)
[2018-06-05] MEDS: GATIFLOXACIN 0.5% LEFT EYE SCH ×3 (08:43→17:55)
[2018-06-05] MEDS: DIFLUPREDNATE 0.05% LEFT EYE SCH ×3 (08:44→17:54)
[2018-06-05] MEDS: Senna/Docusate Sodium 8.6/50 MG Tablet PO SCH (08:45)
[2018-06-05] MEDS: Carvedilol 6.25 MG Tablet PO SCH ×2 (08:45→21:43)
[2018-06-05] MEDS: NEPAFENAC 0.3% LEFT EYE SCH (08:46)
[2018-06-05] MEDS: amLODIPine 5 MG Tablet PO SCH (08:46)
--- NOTE | 2018-06-05 12:40 | P.PNFP ---
Subjective Interval history: pt had hypotension last pm treated with iv fluids now stable Results - Labs Result diagrams: 06/02/18 04:40 06/03/18 03:36 Physical Exam Vital signs: Vital Signs 06/04/18 16:00 06/05/18 00:00 06/05/18 08:00 Temperature 98.1 F 98.1 F 97.7 F Pulse Rate 76 81 72 Respiratory Rate 40 H 21 18 Blood Pressure 141/66 H 138/80 154/73 H Pulse Oximetry 94 L 99 97 Intake & Output 06/04/18 06/05/18 06/05/18 18:59 06:59 18:59 Intake Total 480 / 480 0 / 0 Output Total 475 / 475 0 / 0 Balance 5 / 5 0 / 0 Intake: Oral 480 / 480 0 / 0 Output: Urine 475 / 475 0 / 0 Other: # Voids 0 Date of Last Bowel Movement 06/01/18 # Bowel Movements 0 # Incontinent Bowel Movements 0 - Constitutional no acute distress - Routine HEENT Exam Head: Present: normocephalic Eye: Present: EOMI, PERRL - Routine Neck Exam Present: supple - Routine Respiratory Exam Present: CTA bilaterally - Routine Cardiovascular Exam Present: RRR - Routine Abdominal Exam Present: soft, normoactive bowel sounds - Routine Extremities Exam Present: edema, tenderness Comments: cast left arm multiple cuts and abrasions - Routine Neurological Exam Present: alert, oriented X3 - Urinary Catheter Management Indwelling Urethral Catheter Cath placed during this visit: yes, but has since been removed by the nurse Reason for continuing: Not indwelling catheter Removal date: 06/04/18 Removal time: 17:30 Assessment and Plan - Assessment (1) Subarachnoid hemorrhage Code(s): I60.9 - Nontraumatic subarachnoid hemorrhage, unspecified Status: Acute (2) Subdural hemorrhage Code(s): I62.00 - Nontraumatic subdural hemorrhage, unspecified Status: Acute (3) Intraparenchymal hemorrhage of brain Code(s): I61.9 - Nontraumatic intracerebral hemorrhage, unspecified Status: Acute (4) Laceration of arm Code(s): S41.119A - Laceration without foreign body of unspecified upper arm, initial encounter Status: Acute (5) Fall Code(s): W19.XXXA - Unspecified fall, initial encounter Status: Acute (6) Traumatic brain injury with brief (less than 1 hour) loss of consciousness Code(s): S06.9X9A - Unspecified intracranial injury with loss of consciousness of unspecified duration, initial encounter Status: Acute (7) Brain contusion with less than 1 hour loss of consciousness Code(s): S06.2X9A - Diffuse traumatic brain injury with loss of consciousness of unspecified duration, initial encounter Status: Acute - Assessment and Plan ck lab in am cxr also Discharge Planning: will discharge to med surg anticipate dc home soon
--- NOTE | 2018-06-05 14:02 | XR ---
EXAM DATE: 06/05/2018 1:55 PM EDT AGE/SEX: 77 years / Male INDICATIONS: Cough. CLINICAL DATA: This is the patient's subsequent encounter. Patient reports that signs and symptoms h ave been present for 4 - 6 days and indicates a pain score of 0/10. MEDICAL/SURGICAL HISTORY: Hypertension. . CABG COMPARISON: [facility] [place], CHEST 1V SINGLE AP, 05/31/2018. . FINDINGS: AP and lateral views of the chest demonstrate the lungs to be symmetrically aerated without evidence of mass, infiltrate or effusion. Status post CABG. The cardiomediastinal contours are unremarkable. Osseous structures are intact. CONCLUSION: No acute cardiopulmonary disease. Electronically signed by: Joe Howell MD 06/05/2018 2:01 PM EDT
[2018-06-05 22:33] LABS: Baso % (Auto) 0.6 % (0.0-2.0); Eos # (Auto) 0.4 th/mm3 (0.0-0.4); Eos % (Auto) 6.7 % (0.0-4.0); Hematocrit 35.5 % (39.0-51.0); Hemoglobin 12.2 gm/dL (13.0-17.0); Lymph # (Auto) 1.2 th/mm3 (1.0-4.8); Lymph % (Auto) 22.2 % (9.0-44.0); Mean Corpuscular HGB Conc 34.3 % (32.0-36.0); Mean Corpuscular Hemoglobin 29.5 pg (27.0-34.0); Mean Corpuscular Volume 86.1 fL (80.0-100.0); Mean Platelet Volume 8.3 fL (7.0-11.0); Mono # (Auto) 0.6 th/mm3 (0.0-0.9); Mono % (Auto) 10.3 % (0.0-8.0); Neut # (Auto) 3.3 th/mm3 (1.8-7.7); Neut % (Auto) 60.2 % (16.0-70.0); Platelet Count 165 th/mm3 (150-450); Red Blood Count 4.12 mil/mm3 (4.50-5.90); Red Cell Distribution Width 13.6 % (11.6-17.2); White Blood Count 5.4 th/mm3 (4.0-11.0)
[2018-06-05 23:02] LABS: Anion Gap 7 meq/L (5-15); Blood Urea Nitrogen 27 mg/dL (7-18); Chloride 108 meq/L (98-107); Glomerular Filtration Rate Greater Than 89 mL/min (>89); Glucose,Random 108 mg/dL (74-106); Potassium 3.8 meq/L (3.5-5.1); Sodium 142 meq/L (136-145)
[2018-06-06] MEDS: DIFLUPREDNATE 0.05% LEFT EYE SCH ×2 (02:43→09:07)
[2018-06-06] MEDS: OPTH LEFT EYE SCH ×2 (02:43→09:07)
[2018-06-06] MEDS: Senna/Docusate Sodium 8.6/50 MG Tablet PO SCH ×2 (02:43→09:04)
[2018-06-06] MEDS: GATIFLOXACIN 0.5% LEFT EYE SCH ×2 (02:43→09:07)
[2018-06-06] MEDS: Famotidine PF Inj 20 MG/2 ML Vial IV.PUSH SCH (07:08)
[2018-06-06] MEDS: amLODIPine 5 MG Tablet PO SCH (09:04)
[2018-06-06] MEDS: Carvedilol 6.25 MG Tablet PO SCH (09:04)
[2018-06-06] MEDS: Brimonidine 0.2% Opth Drops 5 ML Bottle LEFT EYE SCH (09:07)
[2018-06-06] MEDS: Timolol 0.5% Drops 5 ML Bottle LEFT EYE SCH (09:07)
[2018-06-06] MEDS: NEPAFENAC 0.3% LEFT EYE SCH (09:08)
--- NOTE | 2018-06-06 09:29 | P.DCO ---
- Physical Therapy Order: Evaluate and treat, Improve ambulation, Strength and gait training - Home Health Nursing Order: CHF education, Wound care and dressing changes, Nursing assessment with vital signs - Case Management Consult Yes - Certification I have seen patient Michael Culver on 06/06/18. My clinical findings support the need for the requested home health care services because: Deconditioned with increased weakness, High risk of falls I certify that my clinical findings support that this patient is homebound because: Impaired cognitive ability/safety, Unsteady gait/balance, Unsafe to leave home unassisted, Poor cardiac reserve
[2018-06-06 09:53] VITALS: BP 129/72; PULSE 78; RESP 20; TEMP 98.3; O2SAT 97
--- NOTE | 2018-07-11 21:17 | P.DS ---
Date of admission: 05/31/18 17:04 Primary care physician: Haroldo Castro DO Attending physician on discharge: Haroldo Castro Anticipated date of discharge: 06/06/18 Brief History from admission: Patient is a 75-year-old male with past medical history significant for chronic atrial fibrillation, chronic Coumadin therapy, history of hypertension, history of CABG and carotid endarterectomy who presented to the emergency department after he sustained a fall from a tree. Apparently he was on the tree trimming some branches when he fell down. Patient is on chronic Coumadin for atrial fibrillation. Patient does not have any recollection of how he might have fallen. He did lose consciousness. ER workup showed small bifrontal hemorrhage and a small SAH. Also he sustained hairline fracture of right distal radius. Rest of trauma work up was negative. Neurosurgery Dr. Crews was consulted. Critical care medicine was requested to admit the patient. I evaluated the patient in the ED. He is slightly anxious but nonfocal. He has some retrograde and antegrade amnesia. Blood pressure was poorly controlled systolic blood pressure was in 240s, patient was started on Cardene infusion for this reason. INR is 1.7 and patient will receive 2 units of FFP, vitamin K 5 mg already given by ED DS: Diagnosis - Discharge Diagnosis (1) Subarachnoid hemorrhage Status: Acute (2) Subdural hemorrhage Status: Acute (3) Intraparenchymal hemorrhage of brain Status: Acute (4) Laceration of arm Status: Acute (5) Fall Status: Acute (6) Traumatic brain injury with brief (less than 1 hour) loss of consciousness Status: Acute (7) Brain contusion with less than 1 hour loss of consciousness Status: Acute DS: Medications - Discharge Medications Prescriptions: cyclobenzaprine 10 mg PO TID PRN #90 tab PRN Reason: Muscle Spasm hydrocodone-acetaminophen 1 tab PO Q4H PRN #30 tab PRN Reason: Pain Scale 6 To 10 tamsulosin 0.8 mg PO DAILY #90 cap DS: Summary Hospital Course: pt admitted sp fall from ladder while trimming trees he suffered SDH and arm lacerations he was stabilized without surgical interventon and will dc home in improved condition he tommy fu with primary care - Time Spent with Patient Total time spent providing and/or coordinating discharge services: Greater than 30 minutes - Quality: AMI Clinical Trial Participant: No - Quality: Stroke Last date observed well: 06/06/18 (stable) Exam - Constitutional no acute distress - Routine HEENT Exam Head: Present: normocephalic, atraumatic Eye: Present: EOMI, PERRL ENT: Present: mucous membranes moist - Routine Neck Exam Present: supple - Routine Respiratory Exam Present: CTA bilaterally - Routine Cardiovascular Exam Present: RRR - Routine Abdominal Exam Present: soft, normoactive bowel sounds Results Procedures completed during hospitalization: none - Impressions ITS Impressions Cervical Spine CT 05/31/18 13:59 CONCLUSION: 1. No acute bony fracture. 2. Diffuse primary bony degenerative changes, disc degeneration and disc space narrowing throughout the cervical spine. There is diffuse osteopenia of the bony structures. 3. Mild grade 1 anterior spondylolisthesis of C3 over C4. 4. Broad-based bulging at C3-4 and C5-6. Wrist X-Ray 05/31/18 16:16 CONCLUSION: Hairline nondisplaced fracture of the distal radius. Shoulder X-Ray 06/02/18 00:00 CONCLUSION: No acute fracture Head CT 06/04/18 00:00 CONCLUSION: 1. Compared to the prior examination of 06/01/2018, there have been no new or significant changes with the bilateral hemorrhagic contusions. No change in the small amount of subarachnoid hemorrhage in the right sylvian fissure. 2. No new areas of hemorrhage are demonstrated. Chest X-Ray 06/05/18 00:00 CONCLUSION: No acute cardiopulmonary disease. Discharge Plan - Discharge Disposition Patient Disposition: /[facility] - Discharge Condition Condition: Stable - Discharge Order Discharge Orders: Discharge Order (Routine); Ordered 06/06/18 Ordered By: Haroldo Castro - Discharge Details Anticipated Discharge Date: 06/06/18 Discharge Comment: stable to dc hoe - Physicians Team Primary Care Provider: Haroldo Castro Attending Provider: Haroldo Castro Other Providers: Curt Crews MD ; Haroldo Castro DO ; Jerry Rea MD ; Haseeb oRdriguez MD ; Robert Andrade MD
== END 2018-06-06 11:07 | disposition home health service (06) ==
LOC: NEPE 13:27 → NEDA 17:04 → N03 06-01 00:51 → N05 06-04 22:37
PROVIDERS: ADMIT Family Medicine; ATTEND Family Medicine
DX: Z23 Encounter for immunization; S00.81XA Abrasion of other part of head, initial encounter; W14.XXXA Fall from tree, initial encounter; I95.9 Hypotension, unspecified; I25.10 Atherosclerotic heart disease of native coronary artery without angina pectoris; S06.5X9A Traumatic subdural hemorrhage with loss of consciousness of unspecified duration, initial encounter; W11.XXXA Fall on and from ladder, initial encounter; Z95.1 Presence of aortocoronary bypass graft; G89.29 Other chronic pain; I48.0 Paroxysmal atrial fibrillation; I16.1 Hypertensive emergency; R33.9 Retention of urine, unspecified; R40.2412 Glasgow coma scale score 13-15, at arrival to emergency department; S41.112A Laceration without foreign body of left upper arm, initial encounter; E78.00 Pure hypercholesterolemia, unspecified; S06.6X9A Traumatic subarachnoid hemorrhage with loss of consciousness of unspecified duration, initial encounter; I48.2 Chronic atrial fibrillation; Z79.899 Other long term (current) drug therapy; M54.2 Cervicalgia; Z87.891 Personal history of nicotine dependence; R41.2 Retrograde amnesia; S52.501A Unspecified fracture of the lower end of right radius, initial encounter for closed fracture; H53.8 Other visual disturbances; I50.9 Heart failure, unspecified; T45.515A Adverse effect of anticoagulants, initial encounter; R41.1 Anterograde amnesia; S06.2X9A Diffuse traumatic brain injury with loss of consciousness of unspecified duration, initial encounter; D68.32 Hemorrhagic disorder due to extrinsic circulating anticoagulants; E78.1 Pure hyperglyceridemia; I11.0 Hypertensive heart disease with heart failure; Z79.01 Long term (current) use of anticoagulants; D68.9 Coagulation defect, unspecified